=== PATIENT | female | born 1940 | race Caucasian/White ===

== ENCOUNTER 2019-06-29 14:24 | Outpatient (CLI) | payer MEDICARE, SELFPAY ==
--- NOTE | 2019-06-29 14:49 | XR_ITS ---
WS: [id number] Chest 2 views, 06/29/2019 Clinical Data: RIB PAIN, LEFT SIDED, UNSPECIFIED FALL INITIAL ENCOUNTER Comparison: PA and lateral chest, 02/04/2019. Findings: The bilateral pleural effusions have reduced considerably. Only a small residual remains bi laterally. The heart remains enlarged. The aortic arch shows calcification and tortuosity. No pneumon ia or pneumothorax is seen. The pulmonary vascularity is not increased. . Aortic arch and descending aorta show mild calcification. XR/XR chest 2V* [id number] Impression: 1. Significant reduction in bilateral pleural effusions. 2. No change in atherosclerosis and cardiomegaly.
== END 2019-06-29 14:25 | disposition home or self-care (01) ==
LOC: RADWPI 14:30
PROVIDERS: Family Provider Family Medicine; PCP Nurse Practitioner Family; Visit Provider Nurse Practitioner Family
DX: J90 Pleural effusion, not elsewhere classified (principal); R07.81 Pleurodynia
CPT/HCPCS: 71046

== ENCOUNTER → 2019-12-13 14:54 | Outpatient (BNVA) | payer MEDICARE, SELFPAY | PROVIDERS: Family Provider Family Medicine; PCP Nurse Practitioner Family; Visit Provider Internal Medicine Cardiovascular Disease | DX: I35.0 Nonrheumatic aortic (valve) stenosis (principal); I50.33 Acute on chronic diastolic (congestive) heart failure; R06.02 Shortness of breath; I50.32 Chronic diastolic (congestive) heart failure; I48.0 Paroxysmal atrial fibrillation | CPT/HCPCS: 80048; 83880 ==

== ENCOUNTER → 2020-01-09 10:18 | Outpatient (BNVA) | payer MEDICARE, MEDICAID, SELFPAY | PROVIDERS: Family Provider Family Medicine; PCP Nurse Practitioner Family; Visit Provider Internal Medicine Cardiovascular Disease | DX: I11.0 Hypertensive heart disease with heart failure (principal); I50.32 Chronic diastolic (congestive) heart failure; I35.0 Nonrheumatic aortic (valve) stenosis; I48.0 Paroxysmal atrial fibrillation | CPT/HCPCS: 80048; 83880 ==

== ENCOUNTER → 2020-01-23 10:22 | Outpatient (BNVA) | payer MEDICARE, SELFPAY | PROVIDERS: Family Provider Family Medicine; PCP Nurse Practitioner Family; Visit Provider Internal Medicine Cardiovascular Disease | DX: I35.0 Nonrheumatic aortic (valve) stenosis (principal); I48.0 Paroxysmal atrial fibrillation; I50.32 Chronic diastolic (congestive) heart failure; I10 Essential (primary) hypertension | CPT/HCPCS: 80048; 83880 ==

== ENCOUNTER 2020-01-31 14:04 | Outpatient (CLI) | payer MEDICARE, MEDICAID, SELFPAY ==
--- NOTE | 2020-01-31 14:16 | USCV_ITS ---
Chinyereamanda Rose Mary Age: 80 Gender: F : 1940 Exam Date: 01/31/2020 14:42 Ordering Phys: Karthik Keenan MD ([email or web address]) Technologist: Winsome Monson Exam Location: [facility] [place] Indication: BP: / HR: 67 Rhythm: Sinus Technical Quality: Adequate MEASUREMENTS (Male / Female) Normal Values 2D ECHO LV Diastolic Diameter PLAX 3.9 cm 4.2 - 5.9 / 3.9 - 5.3 cm LV Systolic Diameter PLAX 2.4 cm LV Chamber Size 4.2 cm IVS Diastolic Thickness 1.0 cm 0.6 - 1.0 / 0.6 - 0.9 cm IVS Systolic Thickness 1.8 cm LVPW Diastolic Thickness 1.8 cm 0.6 - 1.0 / 0.6 - 0.9 cm LVPW Systolic Thickness 1.9 cm RV Chamber Size 2.1 cm LVOT Diameter 2.0 cm LV Ejection Fraction 2D Teich 68.4 % LV Ejection Fraction MOD 2C 56.1 % LV Ejection Fraction 2C AL 58.9 % LA Diameter 4.1 cm LA Width 3.6 cm LA Height 6.9 cm RA Width 3.6 cm RA Height 5.2 cm Aorta at Sinotubular Diameter 2.9 cm M-MODE LV Diastolic Diameter MM 4.3 cm 4.2 - 5.9 / 3.9 - 5.3 cm LV Systolic Diameter MM 2.9 cm LV Ejection Fraction MM Teich 61.5 % IVS Diastolic Thickness MM 1.5 cm 0.6 - 1.0 / 0.6 - 0.9 cm IVS Systolic Thickness MM 1.6 cm LVPW Diastolic Thickness MM 1.7 cm 0.6 - 1.0 / 0.6 - 0.9 cm LVPW Systolic Thickness MM 2.3 cm RV Diastolic Diameter MM 1.6 cm Aortic Annulus Diameter 3.5 cm LA Ao Ratio MM 1.2 MV E Point Septal Separation 1.0 cm DOPPLER AV Peak Velocity 353.0 cm/s LVOT Peak Velocity 76.7 cm/s AV Area Cont Eq vti 0.8 cm squared AV Area Cont Eq pk 0.7 cm squared MV Area PHT 4.0 cm squared Mitral E to A Ratio 1.4 MV E' Velocity 77.5 cm/s Mitral E to MV E' Ratio 19.4 Mitral E to LV E' Lateral Ratio 20.3 Mitral E to LV E' Septal Ratio 18.7 TR Peak Velocity 202.8 cm/s TR Peak Gradient 16.4 mmHg TR Mean Velocity 140.5 cm/s TR Mean Gradient 9.4 mmHg TR Velocity Time Integral 54.4 cm TV Peak E Velocity 81.0 cm/s Right Atrial Pressure 3.0 mmHg Pulmonary Artery Systolic Pressu 19.4 mmHg PV Peak Velocity 53.0 cm/s RV Acceleration Time 0.1 s RV Ejection Time 0.4 s RV AcT/ET 0.3 FINDINGS Left Ventricle Normal left ventricular size and systolic function, EF 50 %. Mild diffuse hypokinesia of the septum and the anteroseptal segments Right Ventricle Normal right ventricular size and systolic function. Right Atrium Mildly increased right atrial size. Left Atrium Moderately increased left atrial size. Mitral Valve Thickened mitral valve. Mild mitral annular calcification. Moderate to severe mitral valve regurgitation. Aortic Valve Thickened aortic valve. Amizfrgo-mx-bvqkqo aortic valve regurgitation. Possibly severe low gradient aortic valve stenosis with a peak velocity of 3.53 m/s. Peak gradient of 50 with a mean gradient of 29 mmHg. Calculated aortic valve area of 0.79 cm 2. Tricuspid Valve Trace to mild tricuspid valve regurgitation. Pulmonic Valve Pulmonic valve not well visualized. Pericardium No pericardial effusion. Aorta Plaque seen in the ascending aorta. CONCLUSIONS 1. Normal left ventricular size and systolic function, EF 50 %. Mild diffuse hypokinesia of the septum and the anteroseptal segments. 2. Znuvkuxo-sv-nsntrd aortic valve regurgitation. 3. Possibly severe low gradient aortic valve stenosis with a peak velocity of 3.53 m/s. Peak gradient of 50 with a mean gradient of 29 mmHg. Calculated aortic valve area of 0.79 cm 2. 4. Moderate to severe mitral valve regurgitation. 5. Biatrial enlargement. 6. Trace to mild tricuspid valve regurgitation. 7. Plaque seen in the ascending aorta. Compared to the study from 01/26/2019, there is some worsening of the aortic valve stenosis and a decline in the LV systolic function. Dr Karthik Keenan MD FAC (Electronically Signed) Final Date: 31 January 2020 18:55 S
== END 2020-01-31 14:05 | disposition home or self-care (01) ==
LOC: RAD 14:13
PROVIDERS: PCP Nurse Practitioner Family; Visit Provider Internal Medicine Cardiovascular Disease
DX: I08.3 Combined rheumatic disorders of mitral, aortic and tricuspid valves (principal)
CPT/HCPCS: 93306

== ENCOUNTER → 2020-02-18 15:42 | Outpatient (BNVA) | payer MEDICARE, MEDICAID, SELFPAY | PROVIDERS: PCP Nurse Practitioner Family; Visit Provider Internal Medicine Cardiovascular Disease | DX: I50.33 Acute on chronic diastolic (congestive) heart failure (principal); I35.0 Nonrheumatic aortic (valve) stenosis; R07.9 Chest pain, unspecified; R06.02 Shortness of breath; I48.0 Paroxysmal atrial fibrillation; E78.2 Mixed hyperlipidemia; I10 Essential (primary) hypertension | CPT/HCPCS: 80048; 83880 ==

== ENCOUNTER 2020-02-19 16:31 | Inpatient (IN) | payer MEDICARE, MEDICAID, SELFPAY ==
[2020-02-19] VITALS (8 sets, daily range): BP systolic 121–150; BP diastolic 39–81; PULSE 46–59; RESP 17–23; TEMP 36.4–36.8; O2SAT 94–98; BMI 31.8
--- NOTE | 2020-02-19 17:11 | XRR_ITS ---
PROCEDURE INFORMATION: Exam: XR Chest, 1 View Exam date and time: 02/19/2020 5:36 PM Age: 80 years old Clinical indication: Shortness of breath; Additional info: SOB x 2 weeks TECHNIQUE: Imaging protocol: XR of the chest Views: 1 view. COMPARISON: CR XR chest 2V* [id number] 06/29/2019 2:55 PM FINDINGS: Lungs: The pulmonary vascularity is normal. No acute pulmonary infiltrates are seen. Pleural space: Small pleural effusions blunt the costophrenic angles. Heart/Mediastinum: The cardiac silhouette is enlarged but unchanged. There is calcification of the aortic arch. There is no other mediastinal widening. Bones/joints: Unremarkable. XR/XR chest 1V portable [id number] IMPRESSION: 1. Stable small bilateral pleural effusions. 2. Stable cardiomegaly.
[2020-02-19 17:22] LABS: Basophils # 0.1 10^3/uL (0.0-0.1); Basophils % 0.9 %; Eosinophils # 0.2 10^3/uL (0.0-0.8); Hematocrit 34.4 % (37.0-47.0); Hemoglobin 10.6 g/dL (11.5-15.3); Lymphocytes # 1.1 10^3/uL (0.8-4.8); Mean Corpuscular HGB Conc 30.8 g/dL (30.0-36.0); Mean Corpuscular Hemoglobin 28.1 pg (28.0-34.0); Mean Corpuscular Volume 91.2 fL (81-99); Mean Platelet Volume 10.2 fL (7.4-10.4); Monocytes # 0.4 10^3/uL (0.2-0.9); Monocytes % 7.2 %; Neutrophils % 68.7 %; Nucleated Red Blood Cells % 0 %; Platelet Count 284 10^3/cmm (130-400); Red Blood Count 3.77 10^6/uL (4.1-5.3); Red Cell Distribution Width 13.2 % (12.1-15.1); White Blood Count 5.4 10^3/uL (4.0-10.0)
[2020-02-19 17:54] LABS: Lactic Sepsis W/Reflex 0.8 mmol/L (0.5-2.2)
--- NOTE | 2020-02-19 18:01 | ED_ITS ---
HPI - SOB/Dyspnea General: Chief Complaint: Shortness of Breath/Dyspnea Stated Complaint: heavy chest sent from dr escoto' Time Seen by Provider: 02/19/20 16:58 History of Present Illness: HPI Narrative: This patient is an 80-year-old female who was sent to the ER by Dr. Escoto. She saw him in the office yesterday and had some blood work done. She said that he called and told to come in because something was too high on her blood work. She said she has been feeling very short of breath for quite some time. Its been getting worse over the past several days. She has had increased fluid in her legs recently but in the past few days it is actually gotten quite a bit better. She also had some vomiting and diarrhea a week ago that lasted for a number of days. That has been resolved for about a week. She denies any fevers. She has a cough but re lates that to her CHF. She also has a history of atrial fibrillation. Dr. Escoto said he had plan to get an echo on her as an outpatient. Associated symptoms: Reports vomiting (Resolved a week ago); Deny abdominal pain, chest pain, fever(s) or nausea Review of Systems General: Reports: 10 or more systems reviewed and unremarkable except in HPI and below Const: Denies: fever(s), chills, fatigue or malaise Eyes: Denies: change in vision ENMT: Denies: odynophagia Card: Denies: chest pain or swelling of feet/ankles Resp: Reports: dyspnea and productive cough; Denies: non-productive cough GI: Reports: vomiting (Resolved a week ago); Denies: abdominal pain or nausea : Denies: flank pain or difficulty voiding Musc: Denies: neck pain or back pain Skin/Breast: Denies: rash Neuro: Denies: headache(s), numbness in extremities or weakness in extremities Patricio/Lymph: Denies: easy bruising or easy bleeding PFSH ED 2 PFSH: Medical History Anemia Aortic stenosis Atrial fibrillation CHF (congestive heart failure) COPD (chronic obstructive pulmonary disease) GERD (gastroesophageal reflux disease) Hiatal hernia Hyperlipidemia Hypertension Hypothyroidism Surgical History (Updated 02/19/20 @ 20:45 by Hiro Wiggins MD) H/O rectal polypectomy H/O spinal fusion H/O: hysterectomy Hx of colonoscopy S/P placement of cardiac pacemaker Family History (Updated 02/19/20 @ 20:45 by Hiro Wiggins MD) Sister Cancer Denies family history of Anesthesia complication Bleeding disorder Social History (Updated 02/19/20 @ 20:46 by Hiro Wiggins MD) Smoking and tobacco status: former smoker Alcohol intake: never Substance/Drug Use: never Household members: family Marital status: / Physical Exam Const: COMMON NORMALS: no acute distress, patient oriented x3, no limitations and alert GENERAL APPEARANCE: cooperative and comfortable HENMT: HEAD & SCALP: normal to inspection FACE & SINUS: normal facial exam Eye: GENERAL EYE: appearance normal, both eyes and all related structures Neck/C-Spine: COMMON NORMALS: supple, no meningeal signs and no JVD Chest: COMMONS NORMALS: normal inspection of the chest Resp: COMMON NORMALS: normal respiratory effort, No use of accessory muscles and clear to auscultation bilaterally AUSCULTATION: clear to auscultation bilaterally Cardio: COMMON NORMALS: no JVD, regular rate and regular rhythm RATE: regular rate RHYTHM: regular rhythm HEART SOUNDS: Murmur heart sound present (3 out of 6, consistent with aortic stenosis) GI: COMMON NORMALS: Normal to inspection, nondistended, normoactive bowel sounds present, Soft to palpation and non-tender INSPECTION: Yes normal to inspection AUSCULTATION: Yes normoactive bowel sounds PALPATION: Yes Soft to palpation Back/Pelvis: COMMON NORMALS: thoracic and lumbar spine normal to inspection Extremity: COMMON NORMALS: normal to inspection Neuro: COMMON NORMALS: patient oriented x3, moves all extremities, no focal motor deficits and no sensory deficits noted SENSORIUM/ORIENTATION: Yes alert MENINGEAL SIGNS: Yes no meningeal signs Psych: COMMON NORMALS: mental status grossly normal, cooperative and normal affect Skin: COMMON NORMALS: no rashes or lesions noted and turgor normal GENERAL SKIN EXAM: no rashes or lesions noted and turgor normal Course ED course: Patient does have worsening CHF as reflected by her labs and chest x-ray. Oxygen saturations are adequate in the ER. She is not complaining of any current chest pain. I spoke with Dr. Escoto who asked that she be admitted and he will consult. The hospitalist agreed to admit her. She will be put on telemetry and further evaluation will be undertaken. Vital Signs: Vital signs: Vital Signs Temperature 98.2 F 02/19/20 16:42 Pulse Rate 47 L 02/19/20 21:04 Respiratory Rate 19 H 02/19/20 21:04 Blood Pressure 126/81 02/19/20 21:04 Pulse Oximetry 97 02/19/20 21:04 MDM - SOB/Dyspnea Lab Data: Labs: Lab Results 02/19/20 02/19/20 02/19/20 Range/Units 17:15 17:15 17:15 WBC 5.4 (4.0-10.0) 10^3/ uL RBC 3.77 L (4.1-5.3) 10^6/u L Hgb 10.6 L (11.5-15.3) g/dL Hct 34.4 L (37.0-47.0) % MCV 91.2 (81-99) fL MCH 28.1 (28.0-34.0) pg MCHC 30.8 (30.0-36.0) g/dL RDW 13.2 (12.1-15.1) % Plt Count 284 (130-400) 10^3/c mm MPV 10.2 (7.4-10.4) fL Neut % (Auto) 68.7 % Lymph % (Auto) 20.0 % Preston % (Auto) 7.2 % Eos % (Auto) 3.0 % Baso % (Auto) 0.9 % Neut # (Auto) 3.70 (1.8-7.7) 10^3/u L Lymph # (Auto) 1.1 (0.8-4.8) 10^3/u L Preston # (Auto) 0.4 (0.2-0.9) 10^3/u L Eos # (Auto) 0.2 (0.0-0.8) 10^3/u L Baso # (Auto) 0.1 (0.0-0.1) 10^3/u L Nucleated RBC % (a uto) 0 % Nucleated RBCs # 0.0 /100WBC PT (12.1-14.9) SECO NDS INR (0.8-1.2) Sodium 135 L (136-145) mmol/L Potassium 4.0 (3.5-5.1) mmol/L Chloride 101 (98-107) mmol/L Carbon Dioxide 24 (22-29) mmol/L Anion Gap 14.0 (5-19) BUN 14 (8-23) mg/dL Creatinine 1.0 H (0.5-0.9) mg/dL GFR Calculation Not Reportable Glucose 100 (65-115) mg/dL Calculated Osmolal ity 281 L (285-295) mOsm/k g Lactic Acid (0.5-2.2) mmol/L Calcium 9.2 (8.5-10.5) mg/dL Magnesium 2.1 (1.7-2.3) mg/dL Total Bilirubin 0.5 (0.15-1.2) mg/dL AST 22 (0-32) U/L ALT 9 (0-33) U/L Alkaline Phosphata se 85 (35-105) IU/L Troponin T Baselin e 16 H (0-10) ng/L Troponin T 120 Min [place] (0-10) ng/L Delta Troponin T (0-10) ABS# NT-Pro-B Natriuret Pep 3135 H (0-450) pg/mL Total Protein 6.9 (6.6-8.7) g/dL Albumin 4.2 (3.5-5.2) g/dL Globulin 2.7 (1.3-4.6) g/dL 02/19/20 02/19/20 02/19/20 Range/Units 17:15 17:15 19:41 WBC (4.0-10.0) 10^3/ uL RBC (4.1-5.3) 10^6/u L Hgb (11.5-15.3) g/dL Hct (37.0-47.0) % MCV (81-99) fL MCH (28.0-34.0) pg MCHC (30.0-36.0) g/dL RDW (12.1-15.1) % Plt Count (130-400) 10^3/c mm MPV (7.4-10.4) fL Neut % (Auto) % Lymph % (Auto) % Preston % (Auto) % Eos % (Auto) % Baso % (Auto) % Neut # (Auto) (1.8-7.7) 10^3/u L Lymph # (Auto) (0.8-4.8) 10^3/u L Preston # (Auto) (0.2-0.9) 10^3/u L Eos # (Auto) (0.0-0.8) 10^3/u L Baso # (Auto) (0.0-0.1) 10^3/u L Nucleated RBC % (a uto) % Nucleated RBCs # /100WBC PT 15.60 H (12.1-14.9) SECO NDS INR 1.20 (0.8-1.2) Sodium (136-145) mmol/L Potassium (3.5-5.1) mmol/L Chloride (98-107) mmol/L Carbon Dioxide (22-29) mmol/L Anion Gap (5-19) BUN (8-23) mg/dL Creatinine (0.5-0.9) mg/dL GFR Calculation Glucose (65-115) mg/dL Calculated Osmolal ity (285-295) mOsm/k g Lactic Acid 0.8 (0.5-2.2) mmol/L Calcium (8.5-10.5) mg/dL Magnesium (1.7-2.3) mg/dL Total Bilirubin (0.15-1.2) mg/dL AST (0-32) U/L ALT (0-33) U/L Alkaline Phosphata se (35-105) IU/L Troponin T Baselin e (0-10) ng/L Troponin T 120 Min [place] 16.40 H (0-10) ng/L Delta Troponin T 0.40 (0-10) ABS# NT-Pro-B Natriuret Pep (0-450) pg/mL Total Protein (6.6-8.7) g/dL Albumin (3.5-5.2) g/dL Globulin (1.3-4.6) g/dL Discharge Plan Discharge Prescriptions: No Action amlodipine 10 mg tablet 10 mg PO DAILY 30 Days Qty: 30 RF: 5 metoprolol tartrate 25 mg tablet 25 mg PO BID 30 Days Qty: 60 RF: 5 levothyroxine 112 mcg tablet 112 mcg PO DAILY RF: 0 pantoprazole 40 mg tablet,delayed release (DR/EC) 40 mg PO BID RF: 0 ropinirole 5 mg tablet 5 mg PO TID RF: 0 sertraline 100 mg tablet 150 mg PO DAILY RF: 0 pravastatin 20 mg tablet 20 mg PO DAILY RF: 0 polyethylene glycol 3350 17 gram powder in packet 17 gm PO DAILY RF: 0 trazodone 50 mg tablet 50 mg PO DAILY RF: 0 Eliquis 5 mg tablet 5 mg PO BID RF: 0 furosemide 40 mg tablet 40 mg PO BID RF: 0 potassium chloride [Klor-Con 10] 10 mEq tablet extended release 10 meq PO TID RF: 0 Coding Level of Care Code ED Form Setter Helper for Chg Fwd Exam Comprehensive
[2020-02-19 18:04] LABS: Alanine Aminotransferase 9 U/L (0-33); Albumin Level 4.2 g/dL (3.5-5.2); Alkaline Phosphatase 85 IU/L (35-105); Aspartate Amino Transferase 22 U/L (0-32); Blood Urea Nitrogen 14 mg/dL (8-23); Calcium 9.2 mg/dL (8.5-10.5); Carbon Dioxide 24 mmol/L (22-29); Chloride 101 mmol/L (98-107); Globulin 2.7 g/dL (1.3-4.6); Glucose 100 mg/dL (65-115); Magnesium 2.1 mg/dL (1.7-2.3); NT Pro B Type Natriuretic Pept 3135 pg/mL (0-450); Osmolality Calculated 281 mOsm/kg (285-295); Sodium 135 mmol/L (136-145); Total Bilirubin 0.5 mg/dL (0.15-1.2); Total Protein 6.9 g/dL (6.6-8.7)
[2020-02-19 18:05] LABS: Troponin(5th) Baseline 16 ng/L (0-10)
[2020-02-19 18:07] LABS: Creatinine Clr Calc Pharmacy 45.4033
--- NOTE | 2020-02-19 20:39 | PM.HP ---
Providers/Chief Complaint Primary Care Provider: SARIKA DIANA Chief Complaint: heavy chest sent from dr keenan' History of Present Illness Rose Mary Jay is a 80 year old female who carries history of aortic stenosis(mean gradient 22 mmHg, aortic area valve 0.94 cm? , preserved ejection fraction, atrial fibrillation, chronic anticoagulation, pacemaker placement, sent to the hospital for worsening shortness of breath. Patient has seen Dr. Keenan yesterday for her symptoms, she was asked to follow-up with him on Tuesday for an echo before her evaluation at [facility] for aortic valve replacement. Patient is denying fever, productive cough. She is endorsing profuse diarrhea which she experienced few days back which has resolved, she also experienced multiple episodes of emesis. Today Dr. Keenan called her to come to the ED for further evaluation, patient is stating that she could hardly take 10-15 steps without getting short of breath at home. Recently she has not noticed orthopnea and PND, she has been consistent with her diuretic regimen. Diagnosis in the ER revealed high BNP otherwise vitals and chest x-ray unremarkable, EKG showing no ischemic or infarctive changes, atrial fibrillation, no significant delta troponin, currently chest pain-free, clinically looks euvolemic Review of Systems Const: Reports: chills, body aches, fatigue and malaise; Denies: fever(s) Eyes: Denies: change in vision ENMT: Denies: throat pain Card: Reports: chest pain and swelling of feet/ankles; Denies: orthopnea Resp: Reports: dyspnea and non-productive cough GI: Reports: diarrhea; Denies: abdominal pain or nausea : Denies: flank pain Musc: Denies: neck pain Skin/Breast: Denies: rash Neuro: Denies: headache(s) Psych: Reports: anxiety Endo: Denies: polyuria Patricio/Lymph: Denies: easy bruising All/Imm: Denies: urticaria Medications/Allergies Home Medications Medication Instructions Recorded Confirmed Last Taken Type apixaban 5 mg tablet 5 mg PO BID 09/25/19 09/25/19 Unknown History levothyroxine 112 mcg tablet 112 mcg PO DAILY 09/25/19 09/25/19 Unknown History pantoprazole 40 mg tablet,delayed 40 mg PO BID tab 09/25/19 09/25/19 Unknown History release polyethylene glycol 3350 17 gram 17 gm PO DAILY 09/25/19 09/25/19 Unknown History oral powder packet pravastatin 20 mg tablet 20 mg PO DAILY 09/25/19 09/25/19 Unknown History ropinirole 5 mg tablet 5 mg PO TID 09/25/19 09/25/19 Unknown History sertraline 100 mg tablet 150 mg PO DAILY tab 09/25/19 09/25/19 Unknown History trazodone 50 mg tablet 50 mg PO DAILY tab 09/25/19 09/25/19 Unknown History furosemide 40 mg tablet 40 mg PO BID tab 01/11/20 Unknown History potassium chloride 10 mEq 10 meq PO TID tab 01/11/20 Unknown History tablet,extended release amlodipine 10 mg tablet 10 mg PO DAILY 30 Days #30 tab 02/18/20 02/18/20 Unknown Rx metoprolol tartrate 25 mg tablet 25 mg PO BID 30 Days #60 tab 02/18/20 02/18/20 Unknown Rx Allergies Allergy/AdvReac Type Severity Reaction Status Date / Time sulfamethoxazole Allergy Unknown unknown Verified 02/19/20 22:53 [From Bactrim] trimethoprim [From Bactrim] Allergy Unknown unknown Verified 02/19/20 22:53 PFSH Acute PFSH: Medical History Anemia Aortic stenosis Atrial fibrillation CHF (congestive heart failure) COPD (chronic obstructive pulmonary disease) GERD (gastroesophageal reflux disease) Hiatal hernia Hyperlipidemia Hypertension Hypothyroidism Surgical History H/O rectal polypectomy H/O spinal fusion H/O: hysterectomy Hx of colonoscopy S/P placement of cardiac pacemaker Family History Sister Cancer Denies family history of Anesthesia complication Bleeding disorder Social History Smoking and tobacco status: former smoker Alcohol intake: never Household members: family Marital status: / Vitals/I&O/Wt Last Vital Signs Temp 98.2 F 02/19/20 16:42 Pulse 46 L 02/19/20 20:00 Resp 23 H 02/19/20 20:00 BP 128/41 02/19/20 20:00 Pulse Ox 98 02/19/20 20:00 Weight last 48 hrs Weight 81.647 kg Physical Exam Narrative: EXAM NARRATIVE: Pleasant female Currently sitting comfortable in her bed, saturating well on room air No active respiratory distress or chest pain Clinically looks euvolemic, Does not look fluid overloaded, S1, S2 variable, hemodynamically stable Abdomen soft nontender bowel sound present Lower extremity no edema gangrene or ulcer, I could appreciate skin wrinkling Appropriate mood and affect EOMI, PERRLA, No neurological deficit Lungs are clear to auscultation without adventitious rhonchi or wheezing Data : 02/19/20 17:15 02/19/20 17:15 A&P Assessment and plan (1) Aortic stenosis: Status: Acute Qualifiers: Cardiac valve disease etiology: nonrheumatic Qualified Code(s): I35.0 - Nonrheumatic aortic (valve) stenosis (2) Atrial fibrillation: Status: Acute Qualifiers: Atrial fibrillation type: paroxysmal Qualified Code(s): I48.0 - Paroxysmal atrial fibrillation (3) Hypertension: Status: Acute Qualifiers: Hypertension type: essential hypertension Qualified Code(s): I10 - Essential (primary) hypertension (4) CHF (congestive heart failure): Status: Acute Qualifiers: Heart failure type: diastolic Heart failure chronicity: chronic Qualified Code(s): I50.32 - Chronic diastolic (congestive) heart failure Additional A&P Information Symptomatic aortic stenosis Aortic valve area less than 1 cm?, echo in the morning, consideration for aortic valve replacement evaluation at [facility] No syncopal event, she has been complaining of mild chest discomfort after dyspnea on exertion Currently hemodynamically stable Dr. Keenan consulted She is requiring hospitalization because of her worsening of shortness of breath, she could hardly take 10-15 steps without getting dyspneic at home which was causing chest pain on and off, troponins without significant delta, EKG not showing ischemic or infarctive changes, Congestive heart failure without acute exacerbation Her BNP although is high but clinically she is euvolemic, she has been taking Lasix 80 mg for now I would use Bumex 1 mg daily considering her active fluid fluid status Hypertension: Currently normotensive, A. fib without RVR, continue Eliquis along metoprolol Full code DVT prophylaxis: Not indicated due to Eliquis use Cardiac diet Attestations Medical Necessity Statement*: Anticipating discharge in less than 48 hours continued overnight monitoring for her symptomatic aortic stenosis with dyspnea exertion, echo in the morning, cardiology has been consulted Time Spent in Patient Care: (>than 50% of time spent in counselling and/or direct pt care on unit). 50mins Coding Level of Care Code Acute Residential Advisor for g Fwd Diagnoses Aortic stenosis I35.0 Cardiac valve disease etiology: nonrheumatic Atrial fibrillation I48.0 Atrial fibrillation type: paroxysmal Hypertension I10 Hypertension type: essential hypertension CHF (congestive heart failure) I50.32 Heart failure type: diastolic Heart failure chronicity: chronic
--- NOTE | 2020-02-19 22:52 | PC.NURSE ---
Patient arrived to the floor from the ED after report was received via phone. Patient is alert and oriented and ambulatory. Patient has been oriented to her room and has call light within reach. Patient has no complaints at this time.
--- NOTE | 2020-02-19 22:53 | PC.NURSE ---
Patient does not have her medication list with her. Unable to verify med rec at this time.
--- NOTE | 2020-02-19 23:10 | ECG_ITS ---
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 Measurements Intervals [place] Rate: 50 P: MT: -1 QRS: 77 QRSD: 93 T: 69 QT: 463 QTc: 426 Interpretive Statements ATRIAL FIBRILLATION WITH SLOW VENTRICULAR RESPONSE MODERATE ST DEPRESSION [0.05+ mV ST DEPRESSION] Compared to ECG 02/05/2019 14:59:58 ST (T wave) deviation now present T-wave abnormality no longer present Electronically Signed On 02-19-2020 20:15:09 CDT by Zunilda Staton M.D. [id number]
[2020-02-19 23:30] LABS: Troponin 5 6HR 15.67 ng/L (0-10)
[2020-02-19 23:51] LABS: Troponin 5 6HR Delta -0.33 ng/L (0-12)
[2020-02-20 01:13] VITALS: BP 116/54; PULSE 60; RESP 20; TEMP 36.6; O2SAT 93
[2020-02-20 04:11] VITALS: BP 110/64; PULSE 47; RESP 19; TEMP 37; O2SAT 92
--- NOTE | 2020-02-20 07:00 | USCV_ITS ---
Rose Mary Jay Age: 80 Gender: F : 1940 Exam Date: 02/20/2020 07:03 Ordering Phys: Hiro Wiggins MD Technologist: Winsome Monson Exam Location: [facility] – [place] Indication: BP: 110 / 64 HR: 53 Rhythm: Sinus Technical Quality: Adequate MEASUREMENTS (Male / Female) Normal Values 2D ECHO LV Diastolic Diameter PLAX 3.8 cm 4.2 - 5.9 / 3.9 - 5.3 cm LV Systolic Diameter PLAX 2.8 cm LV Chamber Size 4.4 cm IVS Diastolic Thickness 1.4 cm 0.6 - 1.0 / 0.6 - 0.9 cm IVS Systolic Thickness 2.0 cm LVPW Diastolic Thickness 2.1 cm 0.6 - 1.0 / 0.6 - 0.9 cm LVPW Systolic Thickness 1.7 cm RV Chamber Size 2.7 cm LVOT Diameter 2.0 cm LV Ejection Fraction 2D Teich 49.0 % LV Ejection Fraction MOD 2C 28.2 % LV Ejection Fraction 2C AL 29.0 % LA Diameter 4.4 cm LA Width 4.2 cm LA Height 6.7 cm RA Width 3.9 cm RA Height 6.0 cm Aorta at Sinotubular Diameter 2.8 cm M-MODE LV Diastolic Diameter MM 5.3 cm 4.2 - 5.9 / 3.9 - 5.3 cm LV Systolic Diameter MM 3.3 cm LV Ejection Fraction MM Teich 67.9 % IVS Diastolic Thickness MM 1.4 cm 0.6 - 1.0 / 0.6 - 0.9 cm IVS Systolic Thickness MM 1.8 cm LVPW Diastolic Thickness MM 1.1 cm 0.6 - 1.0 / 0.6 - 0.9 cm LVPW Systolic Thickness MM 1.8 cm RV Diastolic Diameter MM 2.1 cm Aortic Annulus Diameter 3.3 cm LA Ao Ratio MM 1.4 MV E Point Septal Separation 1.0 cm DOPPLER AV Peak Velocity 369.3 cm/s LVOT Peak Velocity 74.3 cm/s AV Area Cont Eq vti 0.6 cm squared AV Area Cont Eq pk 0.6 cm squared MV Area PHT 4.1 cm squared Mitral E to A Ratio 2.1 MV E' Velocity 71.5 cm/s Mitral E to MV E' Ratio 13.8 Mitral E to LV E' Lateral Ratio 16.9 Mitral E to LV E' Septal Ratio 11.7 TR Peak Velocity 239.4 cm/s TR Peak Gradient 22.9 mmHg TR Mean Velocity 178.2 cm/s TR Mean Gradient 14.4 mmHg TR Velocity Time Integral 85.3 cm TV Peak E Velocity 73.0 cm/s Right Atrial Pressure 5.0 mmHg Pulmonary Artery Systolic Pressu 27.9 mmHg PV Peak Velocity 80.0 cm/s RV Acceleration Time 0.1 s RV Ejection Time 0.3 s RV AcT/ET 0.3 FINDINGS Left Ventricle Normal left ventricular size and systolic function. No significant regional wall motion abnormalities. LVEF is 50%. Diastolic function cannot be assessed because of atrial fibrillation. Right Ventricle The right ventricle is normal in size and function. Right Atrium The right atrium is enlarged Left Atrium The left atrium is severely enlarged Mitral Valve Thickened and calcified mitral valve. Moderate mitral valve regurgitation is noted. Aortic Valve Aortic valve is thickened and calcified. There is moderate aortic regurgitation. Severe aortic stenosis is noted with aortic valve peak velocity of 3.7 m/s.by continuity equation, aortic valve area is calculated as 0.65 cm squared with mean gradient of 35 mmHg. Tricuspid Valve Structurally normal tricuspid valve without significant stenosis or regurgitation. Insufficient TR jet to calculate RVSP. Pulmonic Valve Structurally normal pulmonic valve without significant stenosis. There is no pulmonic regurgitation. Pericardium Normal pericardium without effusion. Aorta Normal ascending aorta dimension. CONCLUSIONS LV systolic function is normal with EF 50%. Diastolic function cannot be assessed because of atrial fibrillation. Severe aortic stenosis is present with aortic valve area of 0.65 cm squared and mean gradient across the valve of 35 mmHg. Moderate aortic regurgitation and moderate mitral regurgitation are noted. Compared to prior study from 01/31/2020, no significant changes are noted. Luis Reina MD (Electronically Signed) Final Date: 20 February 2020 10:43 S
--- NOTE | 2020-02-20 08:13 | P.CONIM_ITS ---
Providers/Reason For Consult Consulting Physican/Specialty*: My name/cardiology Reason for Consult*: Patient with increasing shortness of breath, severe aortic valve stenosis Attending Physician: Mckinley Olson Primary Care Provider: SARIKA DIANA History of Present Illness History of Present Illness Rose Mary Jay is a 80 year old female with multiple medical problems, is presenting with increasing shortness of breath. She is known to have aortic valve stenosis and mitral regurgitation. Her recent echocardiogram revealed severe aortic valve stenosis(low gradient) and moderately severe mitral regurgitation. Her LV ejection fraction was found to be around 50%. She has a history of chronic diastolic heart failure. Lately she been getting progressively short of breath. She was taking a fairly high dose of Lasix as outpatient. In spite of this, her shortness of breath has been progressively getting worse. She also is complaining of generalized weakness/fatigue. Exercise tolerance has markedly decreased. Patient has a history of chronic atrial fibrillation and is on long-term oral anticoagulation. She also is known to have high blood pressure and dyslipidemia. She has a history of chronic anemia, hypothyroidism and recently diagnosed renal insufficiency. She denies any chest pain. No fever, chills or cough. No abdominal pain or dysuria. No other specific complaints. Review of Systems Narrative: CONSTITUTIONAL: No fever or chills. Generalized fatigue/shortness of breath EYES: No blurring of vision or other visual disturbances lately. ENT: No hoarseness of voice, auditory disturbances or sore throat. CARDIOVASCULAR: As mentioned above. RESPIRATORY: No significant cough. GASTROINTESTINAL: No hematemesis or melena. GENITOURINARY: No dysuria or hematuria. INTEGUMENTARY: No skin rashes or history of skin cancer. NEURO: No transient ischemic attacks or amaurosis. PSYCHIATRIC: No history of psychosis or major depression. HEMATOLOGIC: No bleeding disorders or significant anemia. ENDOCRINE: No history of polyuria or polydipsia. MUSCULOSKELETAL: No recent joint pain or swelling. ALLERGY/IMMUNOLOGY: As mentioned above. Meds/Allergies Home Medications and Allergies Home Medications Medication Instructions Recorded Confirmed Last Taken Type apixaban 5 mg tablet 5 mg PO BID 09/25/19 02/20/20 Unknown History pantoprazole 40 mg tablet,delayed 40 mg PO BID tab 09/25/19 02/20/20 Unknown History release polyethylene glycol 3350 17 gram 17 gm PO DAILY 09/25/19 02/20/20 Unknown History oral powder packet pravastatin 20 mg tablet 20 mg PO DAILY 09/25/19 02/20/20 Unknown History sertraline 100 mg tablet 150 mg PO DAILY tab 09/25/19 02/20/20 Unknown History furosemide 40 mg tablet 40 mg PO BID tab 01/11/20 02/20/20 Unknown History potassium chloride 10 mEq 10 meq PO TID tab 01/11/20 02/20/20 Unknown History tablet,extended release amlodipine 10 mg tablet 10 mg PO DAILY 30 Days #30 tab 02/18/20 02/20/20 Unknown Rx metoprolol tartrate 25 mg tablet 25 mg PO BID 30 Days #60 tab 02/18/20 02/20/20 Unknown Rx Vitamin B-12 1 tab PO DAILY 02/20/20 02/20/20 Unknown History gabapentin 400 mg PO TID 02/20/20 02/20/20 Unknown History hydroxyzine HCl 25 mg PO TID PRN 02/20/20 02/20/20 Unknown History levothyroxine 125 mcg PO DAILY 02/20/20 02/20/20 Unknown History losartan 50 mg PO DAILY 02/20/20 02/20/20 Unknown History omeprazole 40 mg PO DAILY 02/20/20 02/20/20 Unknown History vitamin E 1 cap PO DAILY 02/20/20 02/20/20 Unknown History Allergies Allergy/AdvReac Type Severity Reaction Status Date / Time sulfamethoxazole Allergy Unknown unknown Verified 02/20/20 13:07 [From Bactrim] trimethoprim [From Bactrim] Allergy Unknown unknown Verified 02/20/20 13:07 PFSH Acute PFSH: Medical History (Updated 02/20/20 @ 11:20 by Mckinley Olson MD) Acute on chronic diastolic (congestive) heart failure Anemia Aortic stenosis Atrial fibrillation Benign essential hypertension with target blood pressure below 140/90 CHF (congestive heart failure) Chronic episodic atrial fibrillation COPD (chronic obstructive pulmonary disease) Dyslipidemia (high LDL; low HDL) GERD (gastroesophageal reflux disease) Hiatal hernia Hyperlipidemia Hypertension Hypothyroidism Moderate to severe mitral regurgitation Severe aortic valve stenosis Surgical History H/O rectal polypectomy H/O spinal fusion H/O: hysterectomy Hx of colonoscopy S/P placement of cardiac pacemaker Family History Sister Cancer Denies family history of Anesthesia complication Bleeding disorder Social History Smoking and tobacco status: former smoker Alcohol intake: never Substance/Drug Use: never Household members: family Marital status: / Vitals/I&O/Wt Last Vital Signs Temp 98.6 F 02/20/20 04:11 Pulse 47 L 02/20/20 04:11 Resp 19 H 02/20/20 04:11 BP 110/64 02/20/20 04:11 Pulse Ox 92 02/20/20 04:11 02/19/20 02/20/20 02/20/20 22:59 06:59 14:59 Intake Total 400 / 400 Balance 400 / 400 Weight last 48 hrs Weight 180 lb Physical Exam Narrative: EXAM NARRATIVE: GENERAL: The patient is alert and oriented times three. Not in any acute distress. Lightly tachypneic HEENT: No significant pallor, icterus or lymphadenopathy. The pupils are reactant to light. Oral cavity: There are no mucous membrane lesions. Funduscopic examination: The fundus is not visualized NECK: Trachea appears to be central. No masses noted. No JVD or thyromegaly appreciated. No carotid bruit. RESPIRATORY: Chest is symmetrical. No intercostals muscle retraction or any accessory muscle activation. There is no chest wall tenderness. Breath sounds are heard bilaterally. Few fine rales at the bases. Intensity of breath sounds are slightly diminished in the bases BREASTS: Deferred. HEART: The PMI is in the 5th left intercostals space just in the midclavicular line. No palpable precordial events. First heart sound is variable. Second heart sound is muffled. ABDOMEN: No vessel pulsations or distention. No tenderness. No organomegaly appreciated. No abdominal bruit. Bowel sounds are normally heard. : Deferred. RECTAL: Deferred. LYMPHATIC: No lymphadenopathy noted in the neck or groin. EXTREMITIES: No edema or cyanosis. No clubbing. The pulses are palpable but weak bilaterally palpated and found to be of low volume and amplitude MUSCULOSKELETAL: No acute joint deformities or swelling SKIN: There are no significant scars or skin rash noted. NEUROPSYCHIATRIC: The patient is alert and oriented x3. Appears to be in a good mood. The higher functions are grossly within normal limits. No tremors or rigidity noted. A&P Assessment and plan (1) Acute on chronic diastolic (congestive) heart failure: Most likely related to left regular diastolic dysfunction and the severe aortic valve stenosis. Patient may be carefully treated with IV diuretics. I will start her on IV Lasix 40 mg every 12 hours. Potassium 20 mg p.o. twice daily. Based on the clinical response, further recommendations will be made. Status: Acute (2) Chronic episodic atrial fibrillation: Patient may be continued on the current medications. She is on Eliquis. I may hold off on this for the time being. Instead she may be started on Lovenox 80 mg every 12 hours, starting this evening. This is in preparation for the cardiac colorization, possibly on Tuesday. Status: Acute (3) Severe aortic valve stenosis: As mentioned above. Patient seems to have a low gradient severe aortic valve stenosis. Status: Acute (4) Moderate to severe mitral regurgitation: This also may need to be intervened. Status: Acute (5) Benign essential hypertension with target blood pressure below 140/90: Currently the patient is normotensive. We will continue on the current medications. Status: Acute (6) Dyslipidemia (high LDL; low HDL): May continue on the current medications. Status: Acute Additional A&P Information After reviewing the above and also based on the patient's clinical progress, further recommendations will be made. Once the heart failure is properly treated, we may consider doing a cardiac catheterization, to further evaluate the coronary status and hemodynamics. Thank you for the opportunity to evaluate this patient and make these recommendations Coding Level of Care Code Acute Business Center Representative for [facility] Diagnoses Acute on chronic diastolic (congestive) heart failure I50.33 Chronic episodic atrial fibrillation I48.20 Severe aortic valve stenosis I35.0 Moderate to severe mitral regurgitation I34.0 Benign essential hypertension with target blood pressure below 140/90 I10 Dyslipidemia (high LDL; low HDL) E78.5
[2020-02-20] MEDS: ropinirole 2 mg Tablet 5 MG PO ×3 (08:40→19:27)
[2020-02-20] MEDS: atorvastatin 40 mg Tablet 20 MG PO (08:41)
[2020-02-20] MEDS: levothyroxine 112 mcg Tablet PO (08:42)
[2020-02-20] MEDS: sertraline 100 mg Tablet 150 MG PO (08:42)
[2020-02-20] MEDS: pantoprazole DR 40 mg Tablet PO ×2 (08:43→18:15)
[2020-02-20] MEDS: amlodipine 10 mg Tablet PO (08:43)
[2020-02-20] MEDS: apixaban 5 mg Tablet PO (08:43)
[2020-02-20] MEDS: metoprolol tartrate 25 mg Tablet 12.5 MG PO ×2 (08:43→18:15)
[2020-02-20] MEDS: bumetanide 1 mg Tablet PO (08:43)
--- NOTE | 2020-02-20 09:08 | PC.RESP ---
PULMONARY REHAB INFORMATION SENT TO PATIENT.
--- NOTE | 2020-02-20 11:13 | PM.PN ---
Subjective Subjective: Interval history: Reports she is getting short of breath with exertion/walking especially prolonged distance. Currently is not short of breath at rest. Denies chest pain or pressure. Does say that she has been getting intermittent cough. Reports that 3 days ago coughed up phlegm with blood. Vitals/I&O/Wt Last Vital Signs Temp 98.6 F 02/20/20 04:11 Pulse 47 L 02/20/20 04:11 Resp 19 H 02/20/20 04:11 BP 110/64 02/20/20 04:11 Pulse Ox 92 02/20/20 04:11 02/19/20 02/20/20 02/20/20 22:59 06:59 14:59 Intake Total 400 / 400 240 / 240 Balance 400 / 400 240 / 240 Weight last 48 hrs Weight 81.647 kg Physical Exam Const: COMMON NORMALS: no acute distress and patient oriented x3 OTHER: Awake, alert, reclined in bed. Comfortable, pleasant, conversant. HENMT: COMMON NORMALS: oropharynx normal Neck/C-Spine: COMMON NORMALS: no JVD Resp: COMMON NORMALS: normal respiratory effort and clear to auscultation bilaterally AUSCULTATION: clear to auscultation bilaterally Cardio: COMMON NORMALS: no JVD, regular rhythm, S1 normal heart sound present and S2 normal heart sound present RHYTHM: regular rhythm HEART SOUNDS: S1 normal heart sound present, S2 normal heart sound present and Murmur heart sound present systolic GI: COMMON NORMALS: Normal to inspection, nondistended, normoactive bowel sounds present, Soft to palpation and non-tender PALPATION: Yes Soft to palpation Extremity: COMMON NORMALS: no joint enlargement and no pedal edema GENERAL: Yes edema (trace) Neuro: COMMON NORMALS: patient oriented x3 and moves all extremities Skin: COMMON NORMALS: no rashes or lesions noted GENERAL SKIN EXAM: no rashes or lesions noted Data : 02/19/20 17:15 02/19/20 17:15 A&P Assessment and plan (1) Aortic stenosis: Her dyspnea on exertion may be secondary to aortic stenosis. Discussed with cardiology. She is undergoing additional work-up With consideration of aortic valve replacement. After optimization of volume status cosmetic sales assistant is planning for additional assessment with coronary angiogram. Patient has some history of GI bleeding in 2019, although has been on Eliquis, and hemoglobin appears to be stable. Status: Acute Qualifiers: Cardiac valve disease etiology: nonrheumatic Qualified Code(s): I35.0 - Nonrheumatic aortic (valve) stenosis (2) Hemoptysis: Reports some intermittent cough, says that has been having some blood mixed in with phlegm last time 3 days ago after prolonged cough episode. I am not sure whether this may be secondary to aortic stenosis which is a possibility. Will assess with CT of the chest. Status: Acute (3) CHF (congestive heart failure): Cardiology is optimizing her volume status with diuresis prior to additional assessment by car angiography. Status: Acute Qualifiers: Heart failure type: diastolic Heart failure chronicity: chronic Qualified Code(s): I50.32 - Chronic diastolic (congestive) heart failure (4) Atrial fibrillation: Currently episodes of bradycardia down into high 30s. Does not appear to be symptomatic. Cardiology aware, monitoring for now. On minimal metoprolol with 12.5 mg twice daily. Eliquis for now switched to Lovenox anticipation of additional procedures. Status: Acute Qualifiers: Atrial fibrillation type: paroxysmal Qualified Code(s): I48.0 - Paroxysmal atrial fibrillation (5) Hypertension: At goal. Monitor. Status: Acute Qualifiers: Hypertension type: essential hypertension Qualified Code(s): I10 - Essential (primary) hypertension (6) History of GI bleed: History of GI bleed and had upper and lower endoscopy back in January 2019. Has been on Eliquis anticoagulation. Hemoglobin appears to be stable. Continue PPI. Gastritis was noted on EGD. During colonoscopy had polypectomy. Status: Acute Attestations Medical Necessity Statement*: Continue admission for assessment and management of symptomatic aortic stenosis, cough with hemoptysis optimization of volume status with CHF.. Coding Level of Care Code Acute [employer]elesales Team Leader for [facility] Fwd Diagnoses Aortic stenosis I35.0 Cardiac valve disease etiology: nonrheumatic Hemoptysis R04.2 CHF (congestive heart failure) I50.32 Heart failure type: diastolic Heart failure chronicity: chronic Atrial fibrillation I48.0 Atrial fibrillation type: paroxysmal Hypertension I10 Hypertension type: essential hypertension History of GI bleed Z87.19
--- NOTE | 2020-02-20 11:16 | CT_ITS ---
WS: [id number] CT CHEST TECHNIQUE: Noncontrast CT of the chest with coronal and sagittal reformatted images. CLINICAL INFORMATION: hemoptysis, dyspnea on exertion COMPARISON: None. DLP: 782.[address] scans at [facility] use at least one of these dose optimization techniques: automat ed exposure control; mA and/or kV adjustment per patient size (includes targeted exams where dose is matched to clinical indication); or iterative reconstruction. FINDINGS: Small bilateral pleural effusions right greater than left with compressive atelectasis in the lung ba ses. Moderate chronic emphysematous changes. Subsegmental atelectasis in the lingula. Slightly hazy g roundglass opacities in both lungs. Aortic calcification. No mediastinal or hilar lymphadenopathy. No axillary lymphadenopathy. Small eso phageal hiatal hernia. Hepatic granulomas. Splenic granulomas. Fatty atrophy of the pancreas. Mild th oracic kyphosis with hypertrophic changes thoracic spine. CT/CT chest wo con [id number] IMPRESSION: 1. Small to moderate right and small left pleural effusions with compressive a telectasis in the lung bases. 2. Slight hazy groundglass opacities in both lungs. Recommend correlation for pneumonia. 3. Cardiomegaly. 4. No mediastinal or hilar lymphadenopathy. 5. Hypertrophic changes thoracic spine.
[2020-02-20 12:00] VITALS: BP 127/55; PULSE 64; RESP 18; TEMP 36.8; O2SAT 95
[2020-02-20] MEDS: ondansetron 4 MG Tablet PO (14:23)
[2020-02-20] MEDS: FUROsemide 10 mg/mL SDV 4mL 40 MG IVP (14:24)
[2020-02-20 16:00] VITALS: TEMP 36.7
[2020-02-20] MEDS: potassium chloride ER 10 mEq Tablet 20 MEQ PO (18:14)
[2020-02-20] MEDS: enoxaparin 100 mg/mL Syringe 80 MG SUBCUT (18:14)
[2020-02-20 19:21] VITALS: BP 115/60; PULSE 57; RESP 16; TEMP 36.8; O2SAT 93
[2020-02-20 23:21] VITALS: BP 124/53; PULSE 57; RESP 18; TEMP 36.7; O2SAT 95
[2020-02-21] VITALS (8 sets, daily range): BP systolic 101–144; BP diastolic 42–58; PULSE 58–74; RESP 18–20; TEMP 36.3–36.8; O2SAT 95–100
[2020-02-21] MEDS: FUROsemide 10 mg/mL SDV 4mL 40 MG IVP ×2 (01:36→14:32)
--- NOTE | 2020-02-21 03:43 | PC.NURSE ---
Patient vomited once at beginning of shift. Patient has not had any nausea since. Patient has no complaints at this time.
[2020-02-21 05:07] LABS: Basophils % 0.8 %; Eosinophils # 0.1 10^3/uL (0.0-0.8); Eosinophils % 1.7 %; Hematocrit 32.3 % (37.0-47.0); Hemoglobin 9.9 g/dL (11.5-15.3); Lymphocytes # 0.9 10^3/uL (0.8-4.8); Lymphocytes % 17.7 %; Mean Corpuscular HGB Conc 30.7 g/dL (30.0-36.0); Mean Corpuscular Hemoglobin 27.7 pg (28.0-34.0); Mean Corpuscular Volume 90.2 fL (81-99); Mean Platelet Volume 10.4 fL (7.4-10.4); Monocytes # 0.4 10^3/uL (0.2-0.9); Monocytes % 8.3 %; Neutrophils # 3.43 10^3/uL (1.8-7.7); Neutrophils % 71.3 %; Nucleated Red Blood Cells % 0 %; Platelet Count 252 10^3/cmm (130-400); Red Blood Count 3.58 10^6/uL (4.1-5.3); Red Cell Distribution Width 12.8 % (12.1-15.1); White Blood Count 4.8 10^3/uL (4.0-10.0)
[2020-02-21 05:50] LABS: Anion Gap 14.2 (5-19); Blood Urea Nitrogen 13 mg/dL (8-23); Carbon Dioxide 29 mmol/L (22-29); Chloride 97 mmol/L (98-107); Creatinine Clr Calc Pharmacy 45.4033; Glucose 123 mg/dL (65-115); Osmolality Calculated 285 mOsm/kg (285-295); Potassium 3.2 mmol/L (3.5-5.1); Sodium 137 mmol/L (136-145)
[2020-02-21] MEDS: enoxaparin 100 mg/mL Syringe 80 MG SUBCUT ×2 (06:10→17:12)
--- NOTE | 2020-02-21 07:54 | P.PN_ITS ---
Subjective Subjective: Interval history: Patient is feeling better. No chest pain or palpitations. Shortness of breath is improving. She is mainly complaining of stomach discomfort because of the constipation. According the patient, she has not had a bowel movement for 5 or 6 days. She get nauseous and sweaty sometimes. No other specific complaints. Medications: Reviewed: Yes Medication Review Details: Current Medications Amlodipine Besylate (Norvasc) 10 mg PO DAILY [facility] Last Admin: 02/20/20 08:43 Dose: 10 mg Documented by: Apixaban (Eliquis) 5 mg PO BID [facility] Last Admin: 02/20/20 08:43 Dose: 5 mg Documented by: Atorvastatin Calcium (Lipitor) 20 mg PO DAILY [facility] Last Admin: 02/20/20 08:41 Dose: 20 mg Documented by: Enoxaparin Sodium (Lovenox) 80 mg 1 mg/kg (80 mg) SUBCUT Q12H [facility] Last Admin: 02/21/20 06:10 Dose: 80 mg Documented by: Furosemide (Lasix) 40 mg IVP Q12H [facility] Last Admin: 02/21/20 01:36 Dose: 40 mg Documented by: Levothyroxine Sodium (Synthroid) 112 mcg PO DAILY [facility] Last Admin: 02/20/20 08:42 Dose: 112 mcg Documented by: Metoprolol Tartrate (Lopressor) 12.5 mg PO BID [facility] Last Admin: 02/20/20 18:15 Dose: 12.5 mg Documented by: Ondansetron HCl (Zofran) 4 mg PO Q6H PRN PRN Reason: NAUSEA AND VOMITING Last Admin: 02/20/20 14:23 Dose: 4 mg Documented by: Pantoprazole Sodium (Protonix) 40 mg PO BID [facility] Last Admin: 02/20/20 18:15 Dose: 40 mg Documented by: Potassium Chloride (Klor-Con 10) 20 meq PO BID [facility] Last Admin: 02/20/20 18:14 Dose: 20 meq Documented by: Ropinirole HCl (Requip) 5 mg PO TID [facility] Last Admin: 02/20/20 19:27 Dose: 5 mg Documented by: Sertraline HCl (Zoloft) 150 mg PO DAILY [facility] Last Admin: 02/20/20 08:42 Dose: 150 mg Documented by: Vitals/I&O/Wt Last Vital Signs Temp 97.9 F 02/21/20 04:06 Pulse 70 02/21/20 04:06 Resp 18 02/21/20 04:06 BP 101/56 02/21/20 04:06 Pulse Ox 97 02/21/20 04:06 02/20/20 02/21/20 02/21/20 22:59 06:59 14:59 Intake Total 120 / 360 300 / 660 Output Total 900 / 900 Balance 120 / 360 -600 / -240 Weight last 48 hrs Weight 180 lb Physical Exam Narrative: EXAM NARRATIVE: GENERAL: The patient is alert and oriented times three. Not in any acute distress. Lightly tachypneic HEENT: No significant pallor, icterus or lymphadenopathy. NECK: Trachea appears to be central. No masses noted. No JVD or thyromegaly appreciated. No carotid bruit. RESPIRATORY: Chest is symmetrical. No intercostals muscle retraction or any accessory muscle activation. There is no chest wall tenderness. Breath sounds are heard bilaterally. Few fine rales at the bases. Intensity of breath sounds are slightly diminished in the bases BREASTS: Deferred. HEART: The PMI is in the 5th left intercostals space just in the midclavicular line. No palpable precordial events. First heart sound is variable. Second heart sound is muffled. ABDOMEN: No vessel pulsations or distention. No tenderness. No organomegaly appreciated. No abdominal bruit. Bowel sounds are normally heard. : Deferred. RECTAL: Deferred. LYMPHATIC: No lymphadenopathy noted in the neck or groin. EXTREMITIES: No edema or cyanosis. No clubbing. The pulses are palpable but weak bilaterally palpated and found to be of low volume and amplitude MUSCULOSKELETAL: No acute joint deformities or swelling SKIN: There are no significant scars or skin rash noted. NEUROPSYCHIATRIC: The patient is alert and oriented x3. Appears to be in a good mood. The higher functions are grossly within normal limits. No tremors or rigidity noted. Data : 02/21/20 04:32 02/21/20 04:32 Other Labs: Laboratory Last Values WBC 4.8 10^3/uL (4.0-10.0) 02/21/20 04:32 RBC 3.58 10^6/uL (4.1-5.3) L 02/21/20 04:32 Hgb 9.9 g/dL (11.5-15.3) L 02/21/20 04:32 Hct 32.3 % (37.0-47.0) L 02/21/20 04:32 MCV 90.2 fL (81-99) 02/21/20 04:32 MCH 27.7 pg (28.0-34.0) L 02/21/20 04:32 MCHC 30.7 g/dL (30.0-36.0) 02/21/20 04:32 RDW 12.8 % (12.1-15.1) 02/21/20 04:32 Plt Count 252 10^3/cmm (130-400) 02/21/20 04:32 MPV 10.4 fL (7.4-10.4) 02/21/20 04:32 Neut % (Auto) 71.3 % 02/21/20 04:32 Lymph % (Auto) 17.7 % 02/21/20 04:32 [place] % (Auto) 8.3 % 02/21/20 04:32 Eos % (Auto) 1.7 % 02/21/20 04:32 Baso % (Auto) 0.8 % 02/21/20 04:32 Neut # (Auto) 3.43 10^3/uL (1.8-7.7) 02/21/20 04:32 Lymph # (Auto) 0.9 10^3/uL (0.8-4.8) 02/21/20 04:32 [place] # (Auto) 0.4 10^3/uL (0.2-0.9) 02/21/20 04:32 Eos # (Auto) 0.1 10^3/uL (0.0-0.8) 02/21/20 04:32 Baso # (Auto) 0.0 10^3/uL (0.0-0.1) 02/21/20 04:32 Nucleated RBC % (auto) 0 % 02/21/20 04:32 Nucleated RBCs # 0.0 /100WBC 02/21/20 04:32 PT 15.60 SECONDS (12.1-14.9) H 02/19/20 17:15 INR 1.20 (0.8-1.2) 02/19/20 17:15 Sodium 137 mmol/L (136-145) 02/21/20 04:32 Potassium 3.2 mmol/L (3.5-5.1) L 02/21/20 04:32 Chloride 97 mmol/L (98-107) L 02/21/20 04:32 Carbon Dioxide 29 mmol/L (22-29) 02/21/20 04:32 Anion Gap 14.2 (5-19) 02/21/20 04:32 BUN 13 mg/dL (8-23) 02/21/20 04:32 Creatinine 1.0 mg/dL (0.5-0.9) H 02/21/20 04:32 GFR Calculation Not Reportable 02/21/20 04:32 Glucose 123 mg/dL (65-115) H 02/21/20 04:32 Calculated Osmolality 285 mOsm/kg (285-295) 02/21/20 04:32 Lactic Acid 0.8 mmol/L (0.5-2.2) 02/19/20 17:15 Calcium 9.0 mg/dL (8.5-10.5) 02/21/20 04:32 Magnesium 2.1 mg/dL (1.7-2.3) 02/19/20 17:15 Total Bilirubin 0.5 mg/dL (0.15-1.2) 02/19/20 17:15 AST 22 U/L (0-32) 02/19/20 17:15 ALT 9 U/L (0-33) 02/19/20 17:15 Alkaline Phosphatase 85 IU/L (35-105) 02/19/20 17:15 Troponin T Baseline 16 ng/L (0-10) H 02/19/20 17:15 Troponin T 120 Minute 16.40 ng/L (0-10) H 02/19/20 19:41 Delta Troponin T 0.40 ABS# (0-10) 02/19/20 19:41 Troponin T Hi Sens 6Hr 15.67 ng/L (0-10) H 02/19/20 23:00 Troponin T Hi Sens 6Hr Delta -0.33 ng/L (0-12) L 02/19/20 23:00 NT-Pro-B Natriuret Pep 3135 pg/mL (0-450) H 02/19/20 17:15 Total Protein 6.9 g/dL (6.6-8.7) 02/19/20 17:15 Albumin 4.2 g/dL (3.5-5.2) 02/19/20 17:15 Globulin 2.7 g/dL (1.3-4.6) 02/19/20 17:15 A&P Assessment and plan (1) Acute on chronic diastolic (congestive) heart failure: Most likely related to left regular diastolic dysfunction and the severe aortic valve stenosis. Her heart failure seems to be getting compensated. Status: Acute (2) Chronic episodic atrial fibrillation: Patient is off the Eliquis and he is on Lovenox. No bleeding complications. Hemoglobin seems to be remaining stable. Status: Acute (3) Severe aortic valve stenosis: As mentioned above. Patient seems to have a low gradient severe aortic valve stenosis. Status: Acute (4) Moderate to severe mitral regurgitation: This also may need to be intervened. Status: Acute (5) Benign essential hypertension with target blood pressure below 140/90: Currently the patient is normotensive. We will continue on the current medications. Status: Acute (6) Dyslipidemia (high LDL; low HDL): May continue on the current medications. Status: Acute Additional A&P Information I discussed the patient about further management options. Because of the severe aortic valve stenosis complicated with a heart failure, she may benefit from valve intervention. Prior to the valve surgery, she requires a cardiac catheterization. The risk of bleeding, hematoma, vascular injury, myocardial infarction, CVA, renal failure and other concomitant complications were explained in detail. Because of the patient's renal insufficiency and the anemia, she carries a high risk for bleeding and contrast-induced nephropathy. This was discussed in detail with the patient which she understood well. We may hold off on the evening Lasix. We will do a BMP and CBC in the morning. Going to schedule further cardiac colorization for tomorrow. We may do both right and left heart catheterization. Based on the results, further recommendations will be made. Attestations Medical Necessity Statement*: Patient requires continued hospital stay for close monitoring and further management Coding Level of Care Code Acute Telephone Directory Distributor Driver for Foster [place] Medical Decision Making Moderate Complexity Diagnoses Acute on chronic diastolic (congestive) heart failure I50.33 Chronic episodic atrial fibrillation I48.20 Severe aortic valve stenosis I35.0 Moderate to severe mitral regurgitation I34.0 Benign essential hypertension with target blood pressure below 140/90 I10 Dyslipidemia (high LDL; low HDL) E78.5 Time Spent (min) 30
[2020-02-21] MEDS: sertraline 100 mg Tablet 150 MG PO (08:56)
[2020-02-21] MEDS: ondansetron 4 MG Tablet PO (08:56)
[2020-02-21] MEDS: ropinirole 2 mg Tablet 5 MG PO ×3 (08:56→20:29)
[2020-02-21] MEDS: potassium chloride ER 10 mEq Tablet 20 MEQ PO ×2 (08:56→17:13)
[2020-02-21] MEDS: levothyroxine 112 mcg Tablet PO (08:56)
[2020-02-21] MEDS: pantoprazole DR 40 mg Tablet PO ×2 (08:56→17:13)
[2020-02-21] MEDS: amlodipine 10 mg Tablet PO (08:57)
[2020-02-21] MEDS: bisacodyl 10 mg Supp PR (08:57)
[2020-02-21] MEDS: atorvastatin 40 mg Tablet 20 MG PO (08:57)
--- NOTE | 2020-02-21 10:35 | PC.CHAP ---
Pastoral Care Encounter/Spiritual Assessment Type of Contact [] Declined general counselor visit [] Patient/Family/Request visit [] Outpatient visit [] Follow-up visit [] Physician referral [] Code/Alert [x] Routine visit [] Staff referral [] Actively dying [] Patient sleeping [] Family support [] [] Out of room [] Palliative care [] [x] Receiving care in room [] Pre-surgical visit [] Trauma [] Long length of stay [] ICU visit [] Other: Relational/Emotional Strength [x] Patient feels connected with others/family/visitors/staff [x] Distress [] Loneliness/isolation [] Abandonment Spirituality of Patient [x] Person of Karen [] Attends Cheondoism of their Karen [x] Believes in Prayer [] Reads Bible or Anglican materials [] There are Spiritual issues to be addressed Wood Finisher Interventions [x] Prayer [x] Active listening [x] Non-anxious presence [x] Spiritual/emotional support [] Crisis/trauma care [x] Spiritual counseling [] Bereavement support [] Provided bereavement packet [] Provided Bible/devotional materials [] Provided toy/stuffed animal, coloring book to patient or family member [] Provided Communion [] Anointing/[place] [] Salvation [x] Completed spiritual assessment [] Other: Impact on Illness or Injury [] Angry [x] Fearful [] Anxious [] Often cries [] Exhaustion [] Unable to work [] Unable to attend samaritan [] Unable to walk/stand [] Unable to read [] Unable to drive [] Unable to eat/drink [] Unable to sleep [] Unable to be with family [] Patient intubated [] Other: Summary Very weak is stable at this point, negative about recovery, has good attitude Time spent with patient 10 mins
[2020-02-21] MEDS: polyethylene glycol 3350 Pkt 17 gm PO ×2 (10:50→17:12)
--- NOTE | 2020-02-21 14:23 | PC.NURSE ---
PATIENT CONTINUES TO HAVE DIFFICULTY HAVING A BOWEL MOVEMENT DESPITE ADMINISTRATION OF SUPPOSITORY. NOTIFIED DR. HARRIS OF PERSISTENT NAUSEA. ORDERED MAGNESIUM CITRATE X1 BOTTLE AND HAVE ONDANSETRON SWITCHED FROM PO TO IV DOSING.
[2020-02-21] MEDS: ondansetron 2 mg/ML SDV 2 mL 4 MG IVP (14:32)
[2020-02-21] MEDS: magnesium citrate Btl 296 mL PO (14:32)
[2020-02-21] MEDS: metoclopramide 5 mg/mL SDV 2 mL IVP (18:25)
[2020-02-21] MEDS: diphenhydrAMINE 50 mg/mL SDV 1mL 12.5 MG IVP (18:29)
--- NOTE | 2020-02-21 18:48 | PC.NURSE ---
ADMINISTERED MILK AND MOLASSES ENEMA PER DR. HARRIS'S ORDER.
--- NOTE | 2020-02-21 18:54 | P.PN_ITS ---
Subjective Subjective: Interval history: Today she has been having recurrent episodes of nausea, vomiting. Has not had any appetite. Denies abdominal pain. Says has not been passing flatus. Vitals/I&O/Wt Last Vital Signs Temp 97.3 F L 02/21/20 16:00 Pulse 72 02/21/20 16:00 Resp 20 H 02/21/20 16:00 BP 144/56 02/21/20 16:00 Pulse Ox 100 02/21/20 16:00 02/21/20 02/21/20 02/21/20 06:59 14:59 22:59 Intake Total 300 / 660 120 / 120 120 / 240 Output Total 900 / 900 600 / 600 Balance -600 / -240 120 / 120 -480 / -360 Physical Exam Const: COMMON NORMALS: no acute distress and patient oriented x3 OTHER: A wake, alert, reclined in bed. Comfortable, pleasant, conversant. HENMT: COMMON NORMALS: oropharynx normal Neck/C-Spine: COMMON NORMALS: no JVD Resp: COMMON NORMALS: normal respiratory effort and clear to auscultation bilaterally AUSCULTATION: clear to auscultation bilaterally Cardio: COMMON NORMALS: no JVD, regular rhythm, S1 normal heart sound present and S2 normal heart sound present RHYTHM: regular rhythm HEART SOUNDS: S1 normal heart sound present, S2 normal heart sound present and Murmur heart sound present systolic GI: COMMON NORMALS: Soft to palpation and non-tender INSPECTION: No abdominal distension AUSCULTATION: Yes Hypoactive bowel sounds present PALPATION: Yes Soft to palpation Extremity: COMMON NORMALS: no joint enlargement and no pedal edema GENERAL: Yes edema (trace) Neuro: COMMON NORMALS: patient oriented x3 and moves all extremities Skin: COMMON NORMALS: no rashes or lesions noted GENERAL SKIN EXAM: no rashes or lesions noted Data : 02/21/20 04:32 02/21/20 04:32 A&P Assessment and plan (1) Vomiting: This is several episodes of vomiting today. Still no bowel movement despite trying prune juice yesterday, suppository today, MiraLAX, mag citrate. Bowel sounds sound somewhat sluggish. She does have history of gastritis despite being on PPI noted on EGD in January 2019. At that same time also had colonoscopy with polyp removal. Suspect her episodes of vomiting may be related to combination of possibly gastritis, also has been having obstipation, reports has not had a bowel movement in close to a week. Was given an enema, and appears may be about to have a bowel movement. Otherwise PPI has been switched to IV. Added Reglan as needed case not responsive to Zofran. Added sucralfate. Discussed with nursing staff in case of recurrence of vomiting again to call in for placement of NG tube. Abdomen is otherwise soft, nontender on examination with deep palpation. If symptoms persist consider additional imaging. Will check Covid 19 rapid antigen. Status: Acute (2) Aortic stenosis: Her dyspnea on exertion may be secondary to aortic stenosis. Discussed with cardiology. She is undergoing additional work-up with consideration of a ortic valve replacement. After optimization of volume status template reproduction technician is planning for additional assessment with coronary angiogram. Patient has some history of GI bleeding in 2019, although has been on Eliquis, and hemoglobin appears to be stable. Status: Acute Qualifiers: Cardiac valve disease etiology: nonrheumatic Qualified Code(s): I35.0 - Nonrheumatic aortic (valve) stenosis (3) Hemoptysis: Reports some intermittent cough, says that has been having some blood mixed in with phlegm last time 3 days ago after prolonged cough episode. I am not sure whether this may be secondary to aortic stenosis which is a possibility. CT chest without any mass, with small to moderate right and small left pleural effusions. Slight hazy groundglass opacities noted. She has been afebrile, no chills, and is not short of breath. No headache. He is having some vomiting. We will check rapid coronavirus antigen test. Noted cardiomegaly. Status: Acute (4) CHF (congestive heart failure): Cardiology is optimizing her volume status with diuresis prior to additional assessment by car angiography. Status: Acute Qualifiers: Heart failure type: diastolic Heart failure chronicity: chronic Qualified Code(s): I50.32 - Chronic diastolic (congestive) heart failure (5) Atrial fibrillation: Currently episodes of bradycardia down into high 30s. Does not appear to be symptomatic. Cardiology aware, monitoring for now. Beta-kar withheld. Eliquis for now switched to Lovenox anticipation of additional procedures. Status: Acute Qualifiers: Atrial fibrillation type: paroxysmal Qualified Code(s): I48.0 - Paroxysmal atrial fibrillation (6) Hypertension: At goal. Monitor. Status: Acute Qualifiers: Hypertension type: essential hypertension Qualified Code(s): I10 - Essential (primary) hypertension (7) History of GI bleed: History of GI bleed and had upper and lower endoscopy back in January 2019. Has been on Eliquis anticoagulation. Hemoglobin appears to be stable. Continue PPI. Gastritis was noted on EGD. During colonoscopy had polypectomy. Status: Acute Additional A&P Information Hemorrhoids: Likely secondary to constipation. Will need to establish bowel regimen on discharge. Follow-up with PCP. Hypertension: Currently normotensive, A. fib without RVR, continue Lovenox in place of Eliquis. Metoprolol withheld. Full code DVT prophylaxis: On therapeutic anticoagulation Attestations Medical Necessity Statement*: Continue admission for assessment management of recurrent vomiting, obstipation, additional assessment of dyspnea on exertion, severe aortic stenosis. Coding Level of Care Code Acute Telegraphic Instrument Supervisor for Chg Fwd Diagnoses Vomiting R11.10 Aortic stenosis I35.0 Cardiac valve disease etiology: nonrheumatic Hemoptysis R04.2 CHF (congestive heart failure) I50.32 Heart failure type: diastolic Heart failure chronicity: chronic Atrial fibrillation I48.0 Atrial fibrillation type: paroxysmal Hypertension I10 Hypertension type: essential hypertension History of GI bleed Z87.19
--- NOTE | 2020-02-21 18:54 | PC.NURSE ---
IF THE PATIENT CONTINUES TO VOMIT WITH NO BOWEL MOVEMENTS, DR HARRIS ORDERED BOTH DAY AND UTILIZATION COORDINATOR DURING REPORT TO INSERT AN NG TUBE.
--- NOTE | 2020-02-21 19:18 | PC.NURSE ---
Received report from Marcia Carpenter RN. Patient resting in bed. Patient was given enema as ordered prior to shift change. Patient has had a large watery stool (no solid). Patient being COVID tested this evening. Patient being moved to room 106 for isolation precautions. Instructed patient regarding testing and moving to new room. Patient expressed complete understanding.
[2020-02-21] MEDS: sucralfate 1 gm/10 mL Oral Liq UDC PO (20:29)
[2020-02-21 21:36] LABS: SARS Covid-2 Antigen Negative (Negative)
--- NOTE | 2020-02-21 23:36 | PC.NURSE ---
Patient reports having several small loose bms. Also denies any nausea presently.
[2020-02-22] VITALS (38 sets, daily range): BP systolic 78–134; BP diastolic 25–70; PULSE 50–82; RESP 14–25; TEMP 36.4–36.8; O2SAT 94–99
[2020-02-22] MEDS: FUROsemide 10 mg/mL SDV 4mL 40 MG IVP (03:26)
[2020-02-22 05:33] LABS: Anion Gap 13.4 (5-19); Blood Urea Nitrogen 13 mg/dL (8-23); Calcium 9.6 mg/dL (8.5-10.5); Carbon Dioxide 30 mmol/L (22-29); Chloride 99 mmol/L (98-107); Glucose 120 mg/dL (65-115); Osmolality Calculated 289 mOsm/kg (285-295); Potassium 3.4 mmol/L (3.5-5.1); Sodium 139 mmol/L (136-145)
[2020-02-22 05:36] LABS: Basophils # 0.1 10^3/uL (0.0-0.1); Basophils % 0.7 %; Eosinophils # 0.1 10^3/uL (0.0-0.8); Hematocrit 37.7 % (37.0-47.0); Hemoglobin 11.5 g/dL (11.5-15.3); Lymphocytes # 1.2 10^3/uL (0.8-4.8); Mean Corpuscular HGB Conc 30.5 g/dL (30.0-36.0); Mean Corpuscular Hemoglobin 28.5 pg (28.0-34.0); Mean Corpuscular Volume 93.3 fL (81-99); Mean Platelet Volume 10.5 fL (7.4-10.4); Monocytes # 0.5 10^3/uL (0.2-0.9); Monocytes % 7.9 %; Neutrophils # 4.84 10^3/uL (1.8-7.7); Neutrophils % 72.3 %; Nucleated Red Blood Cells % 0 %; Platelet Count 301 10^3/cmm (130-400); Red Blood Count 4.04 10^6/uL (4.1-5.3); White Blood Count 6.7 10^3/uL (4.0-10.0)
[2020-02-22] MEDS: sodium chloride 0.9% 1,000 ML 50 ML IV (05:55)
[2020-02-22] MEDS: diphenhydrAMINE 50 mg Capsule PO (05:55)
[2020-02-22] MEDS: enoxaparin 100 mg/mL Syringe 80 MG SUBCUT (05:55)
--- NOTE | 2020-02-22 06:04 | PC.NURSE ---
Lovenox Morning dose of Lovenox given as ordered at this time. Informed MING Flores in [facility] that medication was given.
--- NOTE | 2020-02-22 06:59 | XACV_ITS ---
Exam Room: [facility] Ht: 160 cm Wt: 82 kg BSA: 1.94 m2 Gender: Female : 1940 Any Known Allergies: Other Exam Priority: Routine Procedure(s): Procedure Description: Diagnostic procedure Procedure Description: Left Heart Catheterization Procedure Description: Right Heart Catheterization Diagnostic Cath Status: Elective Diagnostic Findings * The left main is extremely short vessel , which bifurcates at the ostium to LAD and left circumflex artery. * The left anterior descending artery is a medium caliber vessel which appears to wrap around the LV apex minimally. Some intimal irregularities were noted in the proximal to mid segment. No significant stenotic lesions were noted.\. * The left circumflex artery is a relatively large caliber dominant vessel with no significant stenotic lesions. * The right coronary artery is a relatively small caliber nondominant vessel with no significant stenotic lesions. Conclusions 1. This is an 80-year-old white female with a history of hypertension, dyslipidemia, chronic atrial fibrillation, presented with recurrent episodes of diastolic heart failure. She was found to have possibly severe low gradient aortic valve stenosis by echocardiogram. Her left ventricular ejection fraction was around 50%. For further evaluation of her hemodynamics, a right and left heart catheterization with right and left coronary angiogram was recommended. Patient underwent the procedure this morning. The findings are as follows. 2. Patient has left dominant coronary circulation. The left main is practically nonexistent. No significant obstruction was noted in the LAD, circumflex and right coronary arteries. The right heart catheterization revealed a PA pressure of 31/14 with a mean of 20. The RV pressure was 38 and the right atrial pressure was 2. Pulmonary capillary wedge pressure was 10. Cardiac output was 3.0 with an index of 2.0 by Ivette's method. The LVEDP was 24 mmHg. The mean gradient across the aortic valve is 40 with a peak to peak gradient of 46 mmHg.. Recommendations * Continue current medical management and risk factor modification. Diagnostic RX Recommendation: other cardiac therapy w/o CABG/PCI LV EDP: 24 mmHg Left Ventriculography Findings: * The LV gram was not performed because of the patient's history of chronic kidney disease. Pressures Phase:Rest AO : 123 / 61 ( 85 ) @ 2:50:00 AM 118 / 57 ( 81 ) @ 2:51:00 AM LV : 176 / -1 / @ 2:50:00 AM 173 / -4 / @ 2:50:00 AM 172 / -5 / @ 2:50:00 AM RV : 38 / -6 / @ 2:32:00 AM PA : 31 / 14 ( 20 ) @ 2:31:00 AM RA : a wave = v wave = mean = 2 @ 2:33:00 AM O2 Content Phase:Rest PA : O2 Content O2: 57.5 @ 2:50:00 AM Saturations Phase:Rest AO : 88 @ 2:50:00 AM RA : 59 @ 2:51:00 AM RV : 57 @ 2:50:00 AM PA : 58 @ 2:50:00 AM Cardiac Output Phase:Rest Ivette : 3 @ 2:50:00 AM Ivette Cardiac Index: 2 @ 2:50:00 AM Valves Phase:DefaultPhase AV : 44.0 @ 8:02:07 AM 44.0 @ 8:02:07 AM AV Mean Gradient: 40.0 @ 8:02:07 AM Clinical Evaluation EBL: 5mL-10mL Procedural Details Procedure Consent Obtained. Admit Source: In Patient. Pre-Procedure Time Out. Identified patient by full name and date of as verbalized by the patient/guarantor. Does the consent match the physician's order: Yes. Accurate & Complete Informed Consent: Yes. Inpatient/Outpatient History & Physical on Chart: Yes. If H&P is completed, is and addenduem needed: No; If yes, is the addendum complete: N/A. Visualize and Verify Site with Patient/Guarantor: N/A. Relevant Radiology Images available: N/A. Pre-op teaching completed and patient verbalized understanding. The risks, benefits, and alternatives of sedation and/or procedure were discussed by physician. The patient agrees to continue. Procedure started. Correct patient, site and procedure confirmed by cath team. PERRLA. Strong, equal hand technical services coordinator bilaterally. Lungs clear x 5 lobes. IV Site on Arrival: 20 gauge in the right anticubital. Pre Procedural Pulses: bilateral dorsalis pedis was 3+. Pre Procedural Pulses: bilateral posterior tibial was 3+. Pre Procedural Pulses: bilateral radial was 3+. Oxygen started at 2liters/min via nasal canula. bilateral groins was prepped with chloroprep then draped in the usual sterile fashion. right radial was prepped with chloroprep then draped in the usual sterile fashion. Physician notified. Baseline sample Acquired. HR: 72 BPM. 1L NS w/40 Kcl @ 100mL/hr. Physician arrived. patient put on room air. Physician scrubbed in. Immediate Pre-Procedure Time Out. Correct Patient: Yes; Correct Procedure: Yes; Correct Site: Yes; Correct Patient Position: Yes; Correct Supplies: Yes; Dried Flammable Prep: Yes; Blood Products Available: N/A;. Lidocaine 1% infiltrated to the right groin. Venous access obtained with a micropuncture set. [place] inserted through sheath. drawing PA sat. drawing RV sat. drawing RA sat. swan out. Lidocaine 1% infiltrated to the right radial. Arterial access obtained. A 5 maltese Remberto catheter in over wire. AO sat drawn. patient placed on 2LPM NC. Multiple views taken of left coronary artery. Catheter out. A 5 maltese JR4 catheter in over wire. EDP Sample taken: LV 176/-2,26; HR: 54 BPM; SpO2: 97%. Pullback taken: LV 172/-6,21; AO 123/61(85); Mean: 40mmHg, Peak to Peak: 44mmHg, SEP: 21sec/min; HR: 79 BPM; SpO2: 97%. Multiple views taken of right coronary artery. Catheter out. LV EDP: 24. TR band placed. Hemostasis obtained. Sheath(s) removed and manual pressure held until hemostasis was achieved. Sterile 4x4 and Op-site applied to the puncture site. No oozing or hematoma noted. Post sheath removal instructions were given and the patient verbalized understanding. Post Procedure: Pulses reassessed and unchanged. PERRLA. Strong, equal hand technical services coordinator bilaterally. No VTE prophylaxis required. Contrast type used: Omnipaque 300 mgI/mL, 500 mL bottle. Contrast Material : Omnipaque 98 ml. Medication's Wasted: Heparin = 1000 units. Medication's Wasted: Lidocaine 1% = 2 mL. Medication's Wasted: Nitro = 49.8 mg. Total IV fluids: 350 mL. [facility] Clinical Fraility Score: 4: Vulnerable. 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 Chest Pain Symptom Assessment: Non-anginal Chest Pain. Cardiovascular Instability: No,. Post-op diagnosis: severe aortic valve stenosis, diostolic heart failure. Complications: none. Estimated blood loss: 5mL-10mL. Procedure completed. A TR Band was successful obtaining hemostatsis at the Right Radial artery insertion site. A Manual Compression was successful obtaining hemostatsis at the Right Femoral vein insertion site. Patient transferred by bed to 1st floor. Vital chart was stopped. Access Site Site: Right Femoral vein Sheath Size: 6 Fr Hemostasis Method: Manual Compression Hemostasis Success: Successful Site: Right Radial artery Sheath Size: 6 Fr Hemostasis Method: TR Band Hemostasis Success: Successful Procedure Medications Start: 7:17 AM Stop: 7:17 AM Medication: Versed Amount: 1 mg Route: I.V. Start: 7:18 AM Stop: 7:18 AM Medication: Fentanyl Amount: 50 mcg Route: I.V. Start: 7:39 AM Stop: 7:39 AM Medication: Verapamil Amount: 5 mg Route: I.A. Start: 7:40 AM Stop: 7:40 AM Medication: 0.9% Saline Amount: 250 ml Route: I.V. bolus Start: 7:40 AM Stop: 7:40 AM Medication: Nitrogylcerin Amount: 200 mcg Route: I.A. I, the attending physician, have reviewed and verified all procedure medications. Yes, all medications given per verbal order History/Risk Factors Hypertension: Yes Dyslipidemia: Yes Peripheral Arterial Disease (PAD): No Myocardial Infarction (ND): No Obesity: No Renal Disease: No Tobacco Use: Former Prior Interventions PCI: No CABG: No Valve Surgery: No Report Signatures Finalized by Dr Karthik Keenan MD [facility] on 02/22/2020 09:12 AM
--- NOTE | 2020-02-22 07:16 | W.PM.OPSUD ---
Surgery/Procedure H&P Update DATE OF PROCEDURE: February 22, 2020 DATE H&P PERFORMED: 02/20/20 H&P UPDATE INFORMATION: I have reviewed H&P completed within last 30 days, I have examined patient prior to procedure and No changes to prior documentation PREOP DIAGNOSIS: Aortic stenosis/CHF PLANNED PROCEDURE: Right and left heart catheterization with coronary angiogram and possible PCI Operation Date: 02/22/20 07:00 Proposed Procedures p Cardiac Catheterization(Bilateral) - Karthik Keenan MD PATIENT REASSESSED PRIOR TO SEDATION, WITH NO CHANGE NOTED: Yes PHYSICAL EXAM: alert, oriented x 3 and clear to auscultation bilaterally AIRWAY EVAL/ANESTHESIA PLAN: normal airway, see other exam findings, ASA III, Monitored Anesthesia, Local Anesthesia, Risks, benefits & alternatives of sedation and/or procedure discussed and Patient agrees to continue as planned
[2020-02-22] MEDS: sodium chlor 0.9% + KCl 40 mEq 40 MEQ/1,000 ML BAG 100 MEQ IV ×2 (08:10→20:11)
--- NOTE | 2020-02-22 08:30 | PC.NURSE ---
Patient arrived to floor from manufacturing laborer at 0810. 2 nurse verification of right wrist and groin. TR band intact to right wrist with 16 ml of air, asymptomatic. Dressing to right groin CDI, site asymptomatic. Neurovascular assessment WNL. Nurse to continue monitor.
[2020-02-22] MEDS: gabapentin 400 mg Capsule PO ×3 (09:31→20:12)
[2020-02-22] MEDS: cyanocobalamin 1,000 mcg Tablet 1000 MCG PO (09:32)
[2020-02-22] MEDS: losartan 50 mg Tablet PO (09:32)
[2020-02-22] MEDS: levothyroxine 125 mcg Tablet PO (09:32)
[2020-02-22] MEDS: potassium chloride ER 10 mEq Tablet PO ×3 (09:32→20:11)
[2020-02-22] MEDS: pantoprazole DR 40 mg Tablet PO (09:32)
--- NOTE | 2020-02-22 09:36 | P.PN_ITS ---
Subjective Subjective: Interval history: Patient had a bowel movement yesterday and is feeling much better. Denies any chest pain or palpitations. She underwent the left heart catheterization with a left and right coronary angiogram today. She was found to have no significant obstructive coronary artery disease. She had a high LVEDP and a mean gradient across aortic valve was found to be 40 mmHg. Medications: Reviewed: Yes Medication Review Details: Current Medications Amlodipine Besylate (Norvasc) 10 mg PO DAILY [facility] Last Admin: 02/21/20 08:57 Dose: 10 mg Documented by: Apixaban (Eliquis) 5 mg PO BID [facility] Last Admin: 02/20/20 08:43 Dose: 5 mg Documented by: Atorvastatin Calcium (Lipitor) 20 mg PO DAILY [facility] Last Admin: 02/21/20 08:57 Dose: 20 mg Documented by: Cyanocobalamin (Vitamin B-12) 1,000 mcg PO DAILY [facility] Diphenhydramine HCl (Benadryl) 12.5 mg IVP Q8H PRN PRN Reason: Nausea and Vomiting, Severe Last Admin: 02/21/20 18:29 Dose: 12.5 mg Documented by: Furosemide (Lasix) 40 mg IVP Q12H [facility] Last Admin: 02/22/20 03:26 Dose: 40 mg Documented by: Gabapentin (Neurontin) 400 mg PO TID [facility] Hydroxyzine Pamoate (Vistaril) 25 mg PO TID PRN PRN Reason: Rash Sodium Chloride (Sodium Chloride 0.9%) 1,000 mls @ 50 mls/hr IV .Q20H ONE Stop: 02/23/20 02:59 Last Admin: 02/22/20 05:55 Dose: 50 mls/hr Documented by: Potassium Chloride/Sodium Chloride (Sodium Chlor 0.9% + Kcl 40 Meq) 40 meq in 1,000 mls @ 100 mls/hr IV .Q10H [facility] Levothyroxine Sodium (Synthroid) 112 mcg PO DAILY [facility] Last Admin: 02/21/20 08:56 Dose: 112 mcg Documented by: Levothyroxine Sodium (Synthroid) 125 mcg PO DAILY [facility] Losartan Potassium (Cozaar) 50 mg PO DAILY [facility] Metoclopramide HCl (Reglan) 5 mg IVP Q8H PRN PRN Reason: NAUSEA AND VOMITING Last Admin: 10/22/20 18:25 Dose: 5 mg Documented by: Ondansetron HCl (Zofran) 4 mg IVP Q6H PRN PRN Reason: NAUSEA AND VOMITING Last Admin: 02/21/20 14:32 Dose: 4 mg Documented by: Pantoprazole Sodium (Protonix) 40 mg IVP Q12H [facility] Pantoprazole Sodium (Protonix) 40 mg PO DAILY [facility] Polyethylene Glycol (Miralax) 17 gm PO BID [facility] Last Admin: 02/21/20 17:12 Dose: 17 gm Documented by: Polyethylene Glycol (Miralax) 17 gm PO DAILY [facility] Potassium Chloride (Klor-Con 10) 20 meq PO BID [facility] Last Admin: 02/21/20 17:13 Dose: 20 meq Documented by: Potassium Chloride (Klor-Con 10) 10 meq PO TID [facility] Ropinirole HCl (Requip) 5 mg PO TID [facility] Last Admin: 02/21/20 20:29 Dose: 5 mg Documented by: Sertraline HCl (Zoloft) 150 mg PO DAILY [facility] Last Admin: 02/21/20 08:56 Dose: 150 mg Documented by: Sucralfate (Carafate Oral Liq) 1 gm PO AC&BEDTIME [facility] Last Admin: 02/21/20 20:29 Dose: 1 gm Documented by: Vitamin E (Vitamin E) 400 unit PO DAILY [facility] Vitals/I&O/Wt Last Vital Signs Temp 97.6 F 02/22/20 08:00 Pulse 82 02/22/20 03:28 Resp 22 H 02/22/20 03:28 BP 101/54 02/22/20 03:28 Pulse Ox 99 02/22/20 03:28 02/21/20 02/22/20 02/22/20 22:59 06:59 14:59 Intake Total 120 / 240 Output Total 600 / 600 700 / 1300 Balance -480 / -360 -700 / -1060 Physical Exam Narrative: EXAM NARRATIVE: GENERAL: The patient is alert and oriented times three. Not in any acute distress. Lightly tachypneic HEENT: No significant pallor, icterus or lymphadenopathy. NECK: Trachea appears to be central. No masses noted. No JVD or thyromegaly appreciated. No carotid bruit. RESPIRATORY: Chest is symmetrical. No intercostals muscle retraction or any accessory muscle activation. There is no chest wall tenderness. Breath sounds are heard bilaterally. Few fine rales at the bases. Intensity of breath sounds are slightly diminished in the bases BREASTS: Deferred. HEART: The PMI is in the 5th left intercostals space just in the midclavicular line. No palpable precordial events. First heart sound is variable. Second heart sound is muffled. Ejection systolic murmur of grade 4/6 in the aortic area with a transmission to both carotids. No diastolic murmurs. Still murmur grade 3/6 in the mitral area. ABDOMEN: No vessel pulsations or distention. No tenderness. No organomegaly appreciated. No abdominal bruit. Bowel sounds are normally heard. : Deferred. RECTAL: Deferred. LYMPHATIC: No lymphadenopathy noted in the neck or groin. EXTREMITIES: No edema or cyanosis. No clubbing. The pulses are palpable but weak bilaterally palpated and found to be of low volume and amplitude MUSCULOSKELETAL: No acute joint deformities or swelling SKIN: There are no significant scars or skin rash noted. NEUROPSYCHIATRIC: The patient is alert and oriented x3. Appears to be in a good mood. The higher functions are grossly within normal limits. No tremors or rigidity noted. Const: COMMON NORMALS: alert Resp: COMMON NORMALS: clear to auscultation bilaterally AUSCULTATION: clear to auscultation bilaterally Neuro: SENSORIUM/ORIENTATION: Yes alert Data : 02/22/20 04:30 02/22/20 04:30 A&P Assessment and plan (1) Acute on chronic diastolic (congestive) heart failure: Most likely related to left regular diastolic dysfunction and the severe aortic valve stenosis. Her heart failure seems to be getting compensated. Her LVEDP was 26 with right atrial pressure of 2. Currently she is getting IV fluid, normal saline with potassium. Status: Acute (2) Chronic episodic atrial fibrillation: Patient is off the Eliquis and he is on Lovenox. No bleeding compl ications. Hemoglobin seems to be remaining stable. Will put her back on the Eliquis tomorrow. Status: Acute (3) Severe aortic valve stenosis: As mentioned above. The mean gradient across the aortic valve is found to be 40 mmHg. Status: Acute (4) Moderate to severe mitral regurgitation: Patient may benefit from a transesophageal echo, to further evaluate the aortic valve and the mitral valve. Since she is wanting to go for the catheter base management of the aortic valve, the LISA may be done in that facility Status: Acute (5) Benign essential hypertension with target blood pressure below 140/90: Currently the patient is normotensive. We will continue on the current medications. Status: Acute (6) Dyslipidemia (high LDL; low HDL): May continue on the current medications. Status: Acute Additional A&P Information I contacted Dr. Diego at the [facility]. We will send the cardiac origination data, echocardiogram and the other medical records to Dr. Diego's office. The patient is remaining stable, may be discharged home tomorrow. We may do a CBC and BMP in the morning. She may be restarted on the Eliquis also tomorrow. Dr. Diego's office will be contacting the patient regarding her appointment for further evaluation and management of the aortic valve stenosis. Attestations Medical Necessity Statement*: Possible discharge home tomorrow Coding Level of Care Code Acute Proof Machine Operator Supervisor for g Fwd Diagnoses Acute on chronic diastolic (congestive) heart failure I50.33 Chronic episodic atrial fibrillation I48.20 Severe aortic valve stenosis I35.0 Moderate to severe mitral regurgitation I34.0 Benign essential hypertension with target blood pressure below 140/90 I10 Dyslipidemia (high LDL; low HDL) E78.5
[2020-02-22] MEDS: sodium chlor 0.9% + KCl 40 mEq 40 MEQ/1,000 ML BAG 250 MEQ IV (12:00)
--- NOTE | 2020-02-22 14:41 | PC.NURSE ---
Patient BP 78/39, HR 58, patient lethargic. Patient laid flat and put in trendelenburg positioning. Not much improvement noted in BP. Dr. Keenan notified via telephone at 1118. Physician gave telephone order to administer 250 ml bolus one time. Bolus administered via continuous IV fluids, see titration flowsheet. Nurse to continue to monitor. Nurse contacted Dr. Keenan via telephone again at 1138. no response in BP to bolus, patient is more lethargic. cath insertion sites are asymptomatic. Physician to report to bedside to evaluate patient. At bedside Dr. Keenan gave verbal order to administer another 250 ml bolus. Once bolus is complete, administer 500 ml over 2 hours. Once 500 ml bolus complete, return fluids to continuous order of 100 ml/hr, RBVO. See infusion flowsheet for titration of fluids. Nurse to continue to monitor.
--- NOTE | 2020-02-22 14:59 | PC.NURSE ---
TR band off at 1300. 16 ml of air removed per protocol. Site asymptomatic. Nurse to continue to monitor.
--- NOTE | 2020-02-22 18:17 | PM.PN ---
Subjective Subjective: Interval history: She denies any new symptoms today. No chest pain. No shortness of breath at rest. Had a bowel movement yesterday. No abdominal pain or discomfort. Vitals/I&O/Wt Last Vital Signs Temp 97.6 F 02/22/20 08:00 Pulse 60 02/22/20 17:00 Resp 15 02/22/20 17:00 BP 134/25 02/22/20 17:00 Pulse Ox 94 02/22/20 09:15 02/22/20 02/22/20 02/22/20 06:59 14:59 22:59 Intake Total 1557.851 / 1557.851 Output Total 700 / 1300 Balance -700 / -1060 1557.851 / 1557.851 Physical Exam Const: COMMON NORMALS: no acute distress and patient oriented x3 OTHER: Awake, alert, sitting in bed. Comfortable, pleasant, conversant. HENMT: COMMON NORMALS: oropharynx normal Neck/C-Spine: COMMON NORMALS: no JVD Resp: COMMON NORMALS: normal respiratory effort and clear to auscultation bilaterally AUSCULTATION: clear to auscultation bilaterally Cardio: COMMON NORMALS: no JVD, regular rhythm, S1 normal heart sound present and S2 normal heart sound present RHYTHM: regular rhythm HEART SOUNDS: S1 normal heart sound present, S2 normal heart sound present and Murmur heart sound present systolic GI: COMMON NORMALS: Soft to palpation and non-tender INSPECTION: No abdominal distension AUSCULTATION: Yes Hypoactive bowel sounds present PALPATION: Yes Soft to palpation Extremity: COMMON NORMALS: no joint enlargement and no pedal edema GENERAL: Yes edema (trace) Neuro: COMMON NORMALS: patient oriented x3 and moves all extremities Skin: COMMON NORMALS: no rashes or lesions noted GENERAL SKIN EXAM: no rashes or lesions noted Data : 02/22/20 04:30 02/22/20 04:30 A&P Assessment and plan (1) Aortic stenosis: Status post coronary angiography today without finding of significant coronary disease needing intervention. Discussed with cardiology. Reassess condition, renal function in the morning. Cardiology setting up for TAVR. Her dyspnea on exertion may be secondary to aortic stenosis. Discussed with cardiology. She is undergoing additional work-up with consideration of aortic valve replacement. After optimization of volume status population health coach is planning for additional assessment with coronary angiogram. Patient has some history of GI bleeding in 2019, although has been on Eliquis, and hemoglobin appears to be stable. Status: Acute Qualifiers: Cardiac valve disease etiology: nonrheumatic Qualified Code(s): I35.0 - Nonrheumatic aortic (valve) stenosis (2) Vomiting: Resolved. Tolerating p.o. intake today. Had a bowel movement yesterday. Negative COVID-19 rapid antigen. She does have history of gastritis despite being on PPI noted on EGD in January 2019. At that same time also had colonoscopy with polyp removal. Suspect her episodes of vomiting may be related to combination of possibly gastritis, also has been having obstipation, reports has not had a bowel movement in close to a week. Was given an enema, and appears may be about to have a bowel movement. Had a bowel movement after enema. PPI IV. Reglan as needed case not responsive to Zofran. Sucralfate. Abdomen is otherwise soft, nontender on examination with deep palpation. Status: Acute (3) Hemoptysis: Has had no recurrence. Reports some intermittent cough, says that has been having some blood mixed in with phlegm last time 3 days ago after prolonged cough episode. I am not sure whether this may be secondary to aortic stenosis which is a possibility. CT chest without any mass, with small to moderate right and small left pleural effusions. Slight hazy groundglass opacities noted. She has been afebrile, no chills, and is not short of breath. No headache. He is having some vomiting. Negative coronavirus antigen test. Noted cardiomegaly. Status: Acute (4) CHF (congestive heart failure): Cardiology is optimizing her volume status with diuresis prior to additional assessment by car angiography. Status: Acute Qualifiers: Heart failure chronicity: chronic Heart failure type: diastolic Qualified Code(s): I50.32 - Chronic diastolic (congestive) heart failure (5) Atrial fibrillation: Currently episodes of bradycardia down into high 30s. Noted 3.5-second pause this morning. Discussed with cardiology. Continue to monitor at this time. Electrical Manufacturing Technician will seek assessment at the time of TAVR. Does not appear to be symptomatic. Cardiology aware, monitoring for now. Beta-kar withheld. Change back to Eliquis in the morning. Status: Acute Qualifiers: Atrial fibrillation type: paroxysmal Qualified Code(s): I48.0 - Paroxysmal atrial fibrillation (6) Hypertension: At goal. Monitor. Status: Acute Qualifiers: Hypertension type: essential hypertension Qualified Code(s): I10 - Essential (primary) hypertension (7) History of GI bleed: Hemoglobin stable. History of GI bleed and had upper and lower endoscopy back in January 2019. Has been on Eliquis anticoagulation. Continue PPI. Gastritis was noted on the prior EGD. During colonoscopy had polypectomy. Status: Acute Additional A&P Information Hemorrhoids: Likely secondary to constipation. Will need to establish bowel regimen on discharge. Follow-up with PCP. Hypertension: Currently normotensive, A. fib without RVR, continue Lovenox in place of Eliquis. Metoprolol withheld. Full code DVT prophylaxis: On therapeutic anticoagulation Attestations Medical Necessity Statement*: Continue admission for assessment management of severe aortic stenosis, obstipation, arrangements for aortic valve replacement for severe symptomatic aortic valve stenosis. Coding Level of Care Code Acute Brazing Machine Operator Helper for Chg Fwd Exam Comprehensive Diagnoses Aortic stenosis I35.0 Cardiac valve disease etiology: nonrheumatic Vomiting R11.10 Hemoptysis R04.2 CHF (congestive heart failure) I50.32 Heart failure chronicity: chronic Heart failure type: diastolic Atrial fibrillation I48.0 Atrial fibrillation type: paroxysmal Hypertension I10 Hypertension type: essential hypertension History of GI bleed Z87.19
--- NOTE | 2020-02-22 19:01 | PC.NURSE ---
No further events during shift. Patient sat in chair for dinner, tolerated activity well. Sites asymptomatic. No further needs identified at this time.
--- NOTE | 2020-02-22 19:08 | PC.NURSE ---
Patient resting in bed. Patient reports feeling a little loopy . Fluids remain running as ordered. Noted patient heart rate dropping as low as 39 but not sustaining at this time, stays mostly in low to mid 50s. Patient denies pain. No distress observed. Post heart cath sites remain c,d,i. No s/s of bleeding or hematoma formation observed. Instructed patient on need for continued fluids and continuing plan of care. Patient verbalized complete understanding
[2020-02-23] VITALS (7 sets, daily range): BP systolic 111–134; BP diastolic 35–80; PULSE 44–68; RESP 12–17; TEMP 36.3–36.6; O2SAT 97–99
[2020-02-23] MEDS: sodium chlor 0.9% + KCl 40 mEq 40 MEQ/1,000 ML BAG 100 MEQ IV (05:02)
[2020-02-23 05:43] LABS: Basophils % 0.9 %; Eosinophils # 0.1 10^3/uL (0.0-0.8); Eosinophils % 2.6 %; Hematocrit 33.5 % (37.0-47.0); Hemoglobin 9.9 g/dL (11.5-15.3); Lymphocytes # 1.1 10^3/uL (0.8-4.8); Lymphocytes % 25.5 %; Mean Corpuscular HGB Conc 29.6 g/dL (30.0-36.0); Mean Corpuscular Volume 94.9 fL (81-99); Mean Platelet Volume 10.5 fL (7.4-10.4); Monocytes # 0.4 10^3/uL (0.2-0.9); Monocytes % 8.6 %; Neutrophils # 2.66 10^3/uL (1.8-7.7); Neutrophils % 62.2 %; Nucleated Red Blood Cells % 0 %; Platelet Count 224 10^3/cmm (130-400); Red Blood Count 3.53 10^6/uL (4.1-5.3); Red Cell Distribution Width 13.2 % (12.1-15.1); White Blood Count 4.3 10^3/uL (4.0-10.0)
[2020-02-23 06:23] LABS: Anion Gap 10.9 (5-19); Blood Urea Nitrogen 16 mg/dL (8-23); Calcium 8.8 mg/dL (8.5-10.5); Carbon Dioxide 28 mmol/L (22-29); Chloride 103 mmol/L (98-107); Creatinine Clr Calc Pharmacy 50.4481; Glucose 88 mg/dL (65-115); Osmolality Calculated 285 mOsm/kg (285-295); Potassium 4.9 mmol/L (3.5-5.1); Sodium 137 mmol/L (136-145)
--- NOTE | 2020-02-23 08:25 | DCPLANNER ---
Pg 2 of IM updated and reviewed with pt. No questions, copy provided.
[2020-02-23] MEDS: levothyroxine 125 mcg Tablet PO (09:28)
[2020-02-23] MEDS: gabapentin 400 mg Capsule PO ×3 (09:28→20:50)
[2020-02-23] MEDS: cyanocobalamin 1,000 mcg Tablet 1000 MCG PO (09:28)
[2020-02-23] MEDS: pantoprazole DR 40 mg Tablet PO (09:29)
[2020-02-23] MEDS: potassium chloride ER 10 mEq Tablet PO (09:29)
[2020-02-23] MEDS: losartan 50 mg Tablet PO (09:29)
--- NOTE | 2020-02-23 12:38 | P.PN_ITS ---
Subjective Subjective: Interval history: She is status post coronary angiogram yesterday. She did well yesterday and today. Denies having any chest pain or shortness of breath and is lying comfortably in bed. Complaining of some nausea right now but denies any episodes of vomiting. Medications: Reviewed: Yes Medication Review Details: Current Medications Amlodipine Besylate (Norvasc) 10 mg PO DAILY [facility] Last Admin: 02/21/20 08:57 Dose: 10 mg Documented by: Apixaban (Eliquis) 5 mg PO BID [facility] Last Admin: 02/20/20 08:43 Dose: 5 mg Documented by: Atorvastatin Calcium (Lipitor) 20 mg PO DAILY [facility] Last Admin: 02/21/20 08:57 Dose: 20 mg Documented by: Cyanocobalamin (Vitamin B-12) 1,000 mcg PO DAILY [facility] Last Admin: 02/23/20 09:28 Dose: 1,000 mcg Documented by: Diphenhydramine HCl (Benadryl) 12.5 mg IVP Q8H PRN PRN Reason: Nausea and Vomiting, Severe Last Admin: 02/21/20 18:29 Dose: 12.5 mg Documented by: Furosemide (Lasix) 40 mg PO DAILY@0800 [facility] Gabapentin (Neurontin) 400 mg PO TID [facility] Last Admin: 02/23/20 09:28 Dose: 400 mg Documented by: Hydroxyzine Pamoate (Vistaril) 25 mg PO TID PRN PRN Reason: Rash Potassium Chloride/Sodium Chloride (Sodium Chlor 0.9% + Kcl 40 Meq) 40 meq in 1,000 mls @ 100 mls/hr IV .Q10H [facility] Last Admin: 02/23/20 05:02 Dose: 100 mls/hr Documented by: Levothyroxine Sodium (Synthroid) 112 mcg PO DAILY [facility] Last Admin: 02/21/20 08:56 Dose: 112 mcg Documented by: Levothyroxine Sodium (Synthroid) 125 mcg PO DAILY [facility] Last Admin: 02/23/20 09:28 Dose: 125 mcg Documented by: Losartan Potassium (Cozaar) 50 mg PO DAILY [facility] Last Admin: 02/23/20 09:29 Dose: 50 mg Documented by: Metoclopramide HCl (Reglan) 5 mg IVP Q8H PRN PRN Reason: NAUSEA AND VOMITING Last Admin: 02/21/20 18:25 Dose: 5 mg Documented by: Ondansetron HCl (Zofran) 4 mg IVP Q6H PRN PRN Reason: NAUSEA AND VOMITING Last Admin: 02/21/20 14:32 Dose: 4 mg Documented by: Pantoprazole Sodium (Protonix) 40 mg IVP Q12H [facility] Pantoprazole Sodium (Protonix) 40 mg PO DAILY [facility] Last Admin: 02/23/20 09:29 Dose: 40 mg Documented by: Polyethylene Glycol (Miralax) 17 gm PO BID [facility] Last Admin: 02/21/20 17:12 Dose: 17 gm Documented by: Polyethylene Glycol (Miralax) 17 gm PO DAILY [facility] Last Admin: 02/23/20 09:30 Dose: Not Given Documented by: Potassium Chloride (Klor-Con 10) 20 meq PO DAILY [facility] Ropinirole HCl (Requip) 5 mg PO TID [facility] Last Admin: 02/21/20 20:29 Dose: 5 mg Documented by: Sertraline HCl (Zoloft) 150 mg PO DAILY [facility] Last Admin: 02/21/20 08:56 Dose: 150 mg Documented by: Sucralfate (Carafate Oral Liq) 1 gm PO AC&BEDTIME [facility] Last Admin: 02/21/20 20:29 Dose: 1 gm Documented by: Vitamin E (Vitamin E) 400 unit PO DAILY [facility] Last Admin: 02/23/20 09:30 Dose: Not Given Documented by: Vitals/I&O/Wt Last Vital Signs Temp 97.8 F 02/23/20 11:40 Pulse 55 L 02/23/20 11:40 Resp 12 02/23/20 11:40 BP 111/49 02/23/20 11:40 Pulse Ox 97 02/23/20 11:40 02/22/20 02/23/20 02/23/20 22:59 06:59 14:59 Intake Total 1240 / 2910.351 1125 / 4035.351 360 / 360 Output Total 400 / 400 Balance 840 / 2510.351 1125 / 3635.351 360 / 360 Physical Exam Narrative: EXAM NARRATIVE: GENERAL: Obese lady lying in bed in no acute distress HEENT: Extraocular movement intact. Pupils equal round reactive to light. No pallor or icterus. NECK: central trachea, no JVD. CARDIOVASCULAR SYSTEM: S1-S2 irregular. Grade IV/ crescendo systolic murmur in aortic area with radiation to carotids RESPIRATORY SYSTEM: Chest clear to auscultation. No wheezes rhonchi or rubs heard. No use of accessory muscles. ABDOMEN: Soft, nontender and nondistended. Normal bowel sounds present. EXTREMITIES: No cyanosis or clubbing. No edema. Right femoral access site without any significant bruising or hematoma. 2+ peripheral pulses. MARKING CLERK: Patient is alert oriented ?3. No focal neurological deficits. SKIN: Normal turgor and temperature. No breakdown, rash or nail changes noted. PSYCH: Normal insight and judgment. Data : 02/23/20 05:06 02/23/20 05:06 Attestation for Other Data: I personally reviewed and interpreted the following: Other data: Coronary angiogram 22 February 2020 Diagnostic Findings * The left main is extremely short vessel , which bifurcates at the ostium to LAD and left circumflex artery. * The left anterior descending artery is a medium caliber vessel which appears to wrap around the LV apex minimally. Some intimal irregularities were noted in the proximal to mid segment. No significant stenotic lesions were noted.\. * The left circumflex artery is a relatively large caliber dominant vessel with no significant stenotic lesions. * The right coronary artery is a relatively small caliber nondominant vessel with no significant stenotic lesions. Conclusions 1. This is an 80-year-old white female with a history of hypertension, dyslipidemia, chronic atrial fibrillation, presented with recurrent episodes of diastolic heart failure. She was found to have possibly severe low gradient aortic valve stenosis by echocardiogram. Her left ventricular ejection fraction was around 50%. For further evaluation of her hemodynamics, a right and left heart catheterization with right and left coronary angiogram was recommended. Patient underwent the procedure this morning. The findings are as follows. 2. Patient has left dominant coronary circulation. The left main is practically nonexistent. No significant obstruction was noted in the LAD, circumflex and right coronary arteries. The right heart catheterization revealed a PA pressure of 31/14 with a mean of 20. The RV pressure was 38 and the right atrial pressure was 2. Pulmonary capillary wedge pressure was 10. Cardiac output was 3.0 with an index of 2.0 by Ivette's method. The LVEDP was 24 mmHg. The mean gradient across the aortic valve is 40 with a peak to peak gradient of 46 mmHg.. Recommendations * Continue current medical management and risk factor modification. Diagnostic RX Recommendation: other cardiac therapy w/o CABG/PCI LV EDP: 24 mmHg Left Ventriculography Findings: * The LV gram was not performed because of the patient's history of chronic kidney disease. Transthoracic echocardiogram 20 February 2020 CONCLUSIONS LV systolic function is normal with EF 50%. Diastolic function cannot be assessed because of atrial fibrillation. Severe aortic stenosis is present with aortic valve area of 0.65 cm squared and mean gradient across the valve of 35 mmHg. Moderate aortic regurgitation and moderate mitral regurgitation are noted. Compared to prior study from 01/31/2020, no significant changes are noted. Transthoracic echocardiogram 31 January 2020 CONCLUSIONS 1. Normal left ventricular size and systolic function, EF 50 %. Mild diffuse hypokinesia of the septum and the anteroseptal segments. 2. Daljgwcp-[id number] aortic valve regurgitation. 3. Possibly severe low gradient aortic valve stenosis with a peak velocity of 3.53 m/s. Peak gradient of 50 with a mean gradient of 29 mmHg. Calculated aortic valve area of 0.79 cm 2. 4. Moderate to severe mitral valve regurgitation. 5. Biatrial enlargement. 6. Trace to mild tricuspid valve regurgitation. 7. Plaque seen in the ascending aorta. Compared to the study from 01/26/2019, there is some worsening of the aortic valve stenosis and a decline in the LV systolic function. A&P Assessment and plan (1) Aortic stenosis: Severe aortic stenosis with peak peak to peak gradient of 46 mmHg and mean gradient across aortic valve of 40 mmHg. -She is going to be referred to Dr. Diego in [place] for transcatheter aortic valve replacement. -Normal coronary on cardiac cath. Status: Acute Qualifiers: Cardiac valve disease etiology: nonrheumatic Qualified Code(s): I35.0 - Nonrheumatic aortic (valve) stenosis (2) CHF (congestive heart failure): Appears fairly compensated today. -Start on Lasix 40 mg and potassium 20 mg tomorrow. Status: Acute Qualifiers: Heart failure type: diastolic Heart failure chronicity: chronic Qualified Code(s): I50.32 - Chronic diastolic (congestive) heart failure (3) Atrial fibrillation: Not on AV ruth blockers. Start on Eliquis 5 mg twice a day. -Patient has been running slow. -Avoid any AV ruth blockers on discharge. Status: Acute Qualifiers: Atrial fibrillation type: paroxysmal Qualified Code(s): I48.0 - Paroxysmal atrial fibrillation (4) Hypertension: Continue with losartan and add amlodipine 5 mg daily. -Blood pressure and heart rate log and further changes based on the log. Status: Acute Qualifiers: Hypertension type: essential hypertension Qualified Code(s): I10 - Essential (primary) hypertension (5) Hyperlipidemia: Status: Acute Qualifiers: Hyperlipidemia type: mixed hyperlipidemia Qualified Code(s): E78.2 - Mixed hyperlipidemia Additional A&P Information Moderate to severe mitral valve regurgitation Moderate to severe AI Nausea Constipation: Resolved Hypokalemia: Resolved Anemia Attestations Medical Necessity Statement*: Patient seems stable to be discharged home. Coding Level of Care Code Acute Teacher Aide for [facility] Fwd Diagnoses Aortic stenosis I35.0 Cardiac valve disease etiology: nonrheumatic CHF (congestive heart failure) I50.32 Heart failure type: diastolic Heart failure chronicity: chronic Atrial fibrillation I48.0 Atrial fibrillation type: paroxysmal Hypertension I10 Hypertension type: essential hypertension Hyperlipidemia E78.2 Hyperlipidemia type: mixed hyperlipidemia
[2020-02-23] MEDS: ondansetron 2 mg/ML SDV 2 mL 4 MG IVP (13:23)
[2020-02-23] MEDS: pantoprazole 40 mg SDV IVP (15:44)
[2020-02-23] MEDS: sucralfate 1 gm/10 mL Oral Liq UDC PO ×2 (17:08→20:51)
--- NOTE | 2020-02-23 17:42 | P.PN_ITS ---
Subjective Subjective: Interval history: States she has not been sleeping well at night. Today has not been feeling well. Having some nausea again. Subsequently nausea is better, abdominal discomfort resolved. However, she is tearful. He is not sure why but feels she has not been doing very well. Feeling depressed. Denies any thoughts of self-harm. States that she would seek help in case these ever occurred. Offered her to speak with our psychiatrist, however, she declines. She says that her depression is managed by her primary provider. She agrees to increasing dose of sertraline. States that earlier today had some confusion on waking up. Reports that about 10 years ago she got very confused at which time she had to be pursued by police and apprehended. Reports that she lives alone. Vitals/I&O/Wt Last Vital Signs Temp 97.9 F 02/23/20 16:00 Pulse 51 L 02/23/20 16:00 Resp 12 02/23/20 16:00 BP 134/48 02/23/20 16:00 Pulse Ox 99 02/23/20 16:00 02/23/20 02/23/20 02/23/20 06:59 14:59 22:59 Intake Total 1125 / 4035.351 600 / 600 1000 / 1600 Balance 1125 / 3635.351 600 / 600 1000 / 1600 Physical Exam Const: COMMON NORMALS: no acute distress and patient oriented x3 OTHER: Awake, alert, sitting in bed. Comfortable, pleasant, conversant. HENMT: COMMON NORMALS: oropharynx normal Neck/C-Spine: COMMON NORMALS: no JVD Resp: COMMON NORMALS: normal respiratory effort and clear to auscultation bilaterally AUSCULTATION: clear to auscultation bilaterally Cardio: COMMON NORMALS: no JVD, regular rhythm, S1 normal heart sound present and S2 normal heart sound present RHYTHM: regular rhythm HEART SOUNDS: S1 normal heart sound present, S2 normal heart sound present and Murmur heart sound present systolic GI: COMMON NORMALS: Soft to palpation and non-tender INSPECTION: No abdo jah distension AUSCULTATION: Yes Hypoactive bowel sounds present PALPATION: Yes Soft to palpation Extremity: COMMON NORMALS: no joint enlargement and no pedal edema GENERAL: Yes edema (trace) Neuro: COMMON NORMALS: patient oriented x3 and moves all extremities Skin: COMMON NORMALS: no rashes or lesions noted GENERAL SKIN EXAM: no rashes or lesions noted Data : 02/23/20 05:06 02/23/20 05:06 A&P Assessment and plan (1) Aortic stenosis: She denies any chest pain. She has been doing well on room air. No syncopal or presyncopal episode. Discharge was being planned for today, however, she states has had some episode of confusion today, and also he has generally feeling depressed, tearful, and somewhat unwell. Does not feel safe returning home currently. Discussed with her we will monitor overnight to see that she has no further episodes of confusion with plan to discharge tomorrow with follow-up with primary care provider regarding depression. Status post coronary angiography today without finding of significant coronary disease needing intervention. Discussed with cardiology. Reassess condition, renal function in the morning. Cardiology setting up for TAVR. Her dyspnea on exertion may be secondary to aortic stenosis. Discussed with cardiology. She is undergoing additional work-up with consideration of aortic valve replacement. 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 Patient has some history of GI bleeding in 2019, although has been on Eliquis, and hemoglobin appears to be stable. Status: Acute Qualifiers: Cardiac valve disease etiology: nonrheumatic Qualified Code(s): I35.0 - Nonrheumatic aortic (valve) stenosis (2) Vomiting: Today had more nausea, abdominal discomfort. I see that her PPI was switched over to once daily. Sucralfate for some reason was held and not restarted. Restart sucralfate. Change PPI to twice daily, for now IV. Symptoms improved this evening. If she does well, tentative plan for discharge tomorrow with twice daily PPI and sucralfate. Continue follow-up with PCP, if no improvement consider referral for additional assessment with GI. Negative COVID-19 rapid antigen. She does have history of gastritis despite being on PPI noted on EGD in January 2019. At that same time also had colonoscopy with polyp removal. Status: Acute (3) Hemoptysis: Has had no recurrence. Reports some intermittent cough, says that has been having some blood mixed in with phlegm last time 3 days ago after prolonged cough episode. I am not sure whether this may be secondary to aortic stenosis which is a possibility. CT chest without any mass, with small to moderate right and small left pleural effusions. Slight hazy groundglass opacities noted. She has been afebrile, no chills, and is not short of breath. No headache. He is having some vomiting. Negative coronavirus antigen test. Noted cardiomegaly. Status: Acute (4) CHF (congestive heart failure): Cardiology is optimizing her volume status with diuresis prior to additional assessment by car angiography. Status: Acute Qualifiers: Heart failure type: diastolic Heart failure chronicity: chronic Qualified Code(s): I50.32 - Chronic diastolic (congestive) heart failure (5) Atrial fibrillation: Currently episodes of bradycardia down into high 30s. Noted 3.5-second pause this morning. Discussed with cardiology. Continue to monitor at this time. Case Coordinator will seek assessment at the time of TAVR. Does not appear to be symptomatic. Cardiology aware, monitoring for now. Beta-kar withheld. Change back to Eliquis in the morning. Status: Acute Qualifiers: Atrial fibrillation type: paroxysmal Qualified Code(s): I48.0 - Paroxysmal atrial fibrillation (6) Hypertension: At goal. Monitor. Status: Acute Qualifiers: Hypertension type: essential hypertension Qualified Code(s): I10 - Essential (primary) hypertension (7) History of GI bleed: Hemoglobin stable. History of GI bleed and had upper and lower endoscopy back in January 2019. Has been on Eliquis anticoagulation. Continue PPI. Gastritis was noted on the prior EGD. During colonoscopy had polypectomy. Status: Acute Additional A&P Information Hemorrhoids: Avoid constipation. Follow-up with PCP. Hypertension: At goal. A. fib without RVR, Eliquis. Metoprolol withheld due to bradycardia. Full code DVT prophylaxis: On therapeutic anticoagulation Attestations Medical Necessity Statement*: Continue admission for additional monitoring due to episode of confusion, discharge arrangements, optimization of treatment of severe aortic stenosis, gastritis, congestive heart failure, and the setting of atrial fibrillation with bradycardia, on anticoagulation, with recent history of hemoptysis, history of GI bleeding. 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
[2020-02-23] MEDS: ropinirole 2 mg Tablet 5 MG PO (20:50)
[2020-02-23] MEDS: atorvastatin 40 mg Tablet 20 MG PO (20:51)
[2020-02-23] MEDS: hyDROXYzine 25 mg Capsule PO (20:54)
[2020-02-23] MEDS: zolpidem 5 mg Tablet PO (23:36)
--- NOTE | 2020-02-23 23:38 | PC.NURSE ---
Patient c/o not sleeping for 3 days, feeling, nervous, anxious and nauseous. Informed Dr Wiggins and order was received for Ambien 5mg po which was administered as ordered. Instructed patient on new medication. Patient verbalized complete understanding. Assisted patient to bed. No other distress observed.
[2020-02-24 03:28] VITALS: BP 134/61; PULSE 60; RESP 18; O2SAT 94
[2020-02-24] MEDS: pantoprazole 40 mg SDV IVP (03:29)
[2020-02-24 08:00] VITALS: BP 138/59; PULSE 48; RESP 15; TEMP 35.9; O2SAT 97
[2020-02-24] MEDS: sucralfate 1 gm/10 mL Oral Liq UDC PO ×2 (08:12→11:15)
[2020-02-24 08:14] VITALS: BP 138/59
[2020-02-24] MEDS: ropinirole 2 mg Tablet 5 MG PO (08:14)
[2020-02-24] MEDS: cyanocobalamin 1,000 mcg Tablet 1000 MCG PO (08:14)
[2020-02-24] MEDS: gabapentin 400 mg Capsule PO (08:14)
[2020-02-24] MEDS: losartan 50 mg Tablet PO (08:14)
[2020-02-24] MEDS: levothyroxine 125 mcg Tablet PO (08:15)
[2020-02-24] MEDS: FUROsemide 40 mg Tablet PO (08:15)
[2020-02-24] MEDS: levothyroxine 112 mcg Tablet PO (08:15)
[2020-02-24] MEDS: sertraline 50 mg Tablet 75 MG PO (08:16)
[2020-02-24] MEDS: sertraline 100 mg Tablet PO (08:17)
[2020-02-24] MEDS: potassium chloride ER 10 mEq Tablet 20 MEQ PO (08:17)
[2020-02-24 09:09] LABS: Thyroid Stimulating Hormone 12.09 uIU/mL (0.27-4.20)
--- NOTE | 2020-02-24 11:30 | PM.PN ---
Subjective Subjective: Interval history: She is status post coronary angiogram. Denies having any chest pain or shortness of breath and is lying comfortably in bed. Medications: Reviewed: Yes Medication Review Details: Current Medications Atorvastatin Calcium (Lipitor) 20 mg PO BEDTIME [facility] Last Admin: 02/23/20 20:51 Dose: 20 mg Documented by: Cyanocobalamin (Vitamin B-12) 1,000 mcg PO DAILY [facility] Last Admin: 02/24/20 08:14 Dose: 1,000 mcg Documented by: Diphenhydramine HCl (Benadryl) 12.5 mg IVP Q8H PRN PRN Reason: Nausea and Vomiting, Severe Last Admin: 02/21/20 18:29 Dose: 12.5 mg Documented by: Furosemide (Lasix) 40 mg PO DAILY@0800 [facility] Last Admin: 02/24/20 08:15 Dose: 40 mg Documented by: Gabapentin (Neurontin) 400 mg PO TID [facility] Last Admin: 02/24/20 08:14 Dose: 400 mg Documented by: Hydroxyzine Pamoate (Vistaril) 25 mg PO TID PRN PRN Reason: Rash Last Admin: 02/23/20 20:54 Dose: 25 mg Documented by: Levothyroxine Sodium (Synthroid) 112 mcg PO DAILY [facility] Last Admin: 02/24/20 08:15 Dose: 112 mcg Documented by: Levothyroxine Sodium (Synthroid) 125 mcg PO DAILY [facility] Last Admin: 02/24/20 08:15 Dose: 125 mcg Documented by: Losartan Potassium (Cozaar) 50 mg PO DAILY [facility] Last Admin: 02/24/20 08:14 Dose: 50 mg Documented by: Metoclopramide HCl (Reglan) 5 mg IVP Q8H PRN PRN Reason: NAUSEA AND VOMITING Last Admin: 02/21/20 18:25 Dose: 5 mg Documented by: Ondansetron HCl (Zofran) 4 mg IVP Q6H PRN PRN Reason: NAUSEA AND VOMITING Last Admin: 02/21/20 14:32 Dose: 4 mg Documented by: Pantoprazole Sodium (Protonix) 40 mg IVP Q12H [facility] Last Admin: 02/24/20 03:29 Dose: 40 mg Documented by: Potassium Chloride (Klor-Con 10) 20 meq PO DAILY [facility] Last Admin: 10/25/20 08:17 Dose: 20 meq Documented by: Ropinirole HCl (Requip) 5 mg PO TID [facility] Last Admin: 02/24/20 08:14 Dose: 5 mg Documented by: Sertraline HCl (Zoloft) 100 mg PO DAILY [facility] Last Admin: 02/24/20 08:17 Dose: 100 mg Documented by: Sertraline HCl (Zoloft) 75 mg PO DAILY [facility] Last Admin: 02/24/20 08:16 Dose: 75 mg Documented by: Sucralfate (Carafate Oral Liq) 1 gm PO AC&BEDTIME [facility] Last Admin: 02/24/20 11:15 Dose: 1 gm Documented by: Vitamin E (Vitamin E) 400 unit PO DAILY [facility] Last Admin: 02/24/20 10:25 Dose: Not Given Documented by: Zolpidem Tartrate (Ambien) 5 mg PO BEDTIME PRN PRN Reason: AGITATION Last Admin: 02/23/20 23:36 Dose: 5 mg Documented by: Vitals/I&O/Wt Last Vital Signs Temp 96.6 F L 02/24/20 08:00 Pulse 48 L 02/24/20 08:00 Resp 15 02/24/20 08:00 BP 138/59 02/24/20 08:14 Pulse Ox 97 02/24/20 08:00 02/23/20 02/24/20 02/24/20 22:59 06:59 14:59 Intake Total 1360 / 1960 460 / 460 Balance 1360 / 1960 460 / 460 Physical Exam Narrative: EXAM NARRATIVE: GENERAL: Obese lady lying in bed in no acute distress HEENT: Extraocular movement intact. Pupils equal round reactive to light. No pallor or icterus. NECK: central trachea, no JVD. CARDIOVASCULAR SYSTEM: S1-S2 irregular. Grade IV/ crescendo systolic murmur in aortic area with radiation to carotids RESPIRATORY SYSTEM: Chest clear to auscultation. No wheezes rhonchi or rubs heard. No use of accessory muscles. ABDOMEN: Soft, nontender and nondistended. Normal bowel sounds present. EXTREMITIES: No cyanosis or clubbing. No edema. Right femoral access site without any significant bruising or hematoma. 2+ peripheral pulses. 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 No focal neurological deficits. SKIN: Normal turgor and temperature. No breakdown, rash or nail changes noted. PSYCH: Normal insight and judgment. Data : 02/23/20 05:06 02/23/20 05:06 A&P Assessment and plan (1) Aortic stenosis: Severe aortic stenosis with peak to peak gradient of 46 mmHg and mean gradient across aortic valve of 40 mmHg. -She is going to be referred to Dr. Diego in [place] for transcatheter aortic valve replacement. -Normal coronary on cardiac cath. I spoke to her niece Anushka as well as the patient and explained to them about transcatheter aortic valve replacement. -Follow-up in 1 week with BMP and site check. Status: Acute Qualifiers: Cardiac valve disease etiology: nonrheumatic Qualified Code(s): I35.0 - Nonrheumatic aortic (valve) stenosis (2) CHF (congestive heart failure): Appears fairly compensated today. -Start on Lasix 40 mg and potassium 20 mg tomorrow. Status: Acute Qualifiers: Heart failure type: diastolic Heart failure chronicity: chronic Qualified Code(s): I50.32 - Chronic diastolic (congestive) heart failure (3) Atrial fibrillation: Not on AV ruth blockers. Start on Eliquis 5 mg twice a day. -Patient has been running slow. No indication for permanent pacemaker placement presently. -Avoid any AV ruth blockers on discharge. Status: Acute Qualifiers: Atrial fibrillation type: paroxysmal Qualified Code(s): I48.0 - Paroxysmal atrial fibrillation (4) Hypertension: Continue with losartan and add amlodipine 5 mg daily. -Blood pressure and heart rate log and further changes based on the log. Status: Acute Qualifiers: Hypertension type: essential hypertension Qualified Code(s): I10 - Essential (primary) hypertension (5) Hyperlipidemia: Status: Acute Qualifiers: Hyperlipidemia type: mixed hyperlipidemia Qualified Code(s): E78.2 - Mixed hyperlipidemia Additional A&P Information Moderate to severe mitral valve regurgitation Moderate to severe AI Nausea Constipation: Resolved Hypokalemia: Resolved Anemia Hypothyroidism Attestations Medical Necessity Statement*: Stable to be discharged home. Coding Level of Care Code Acute Superintendent Concrete Mixing Plant for g Fwd Diagnoses Aortic stenosis I35.0 Cardiac valve disease etiology: nonrheumatic CHF (congestive heart failure) I50.32 Heart failure type: diastolic Heart failure chronicity: chronic Atrial fibrillation I48.0 Atrial fibrillation type: paroxysmal Hypertension I10 Hypertension type: essential hypertension Hyperlipidemia E78.2 Hyperlipidemia type: mixed hyperlipidemia
[2020-02-24 11:58] VITALS: BP 152/55; PULSE 55; RESP 18; TEMP 35.5; O2SAT 93
[2020-02-24] MEDS: apixaban 5 mg Tablet PO (12:13)
[2020-02-24 12:16] VITALS: PULSE 54; O2SAT 98
--- NOTE | 2020-02-24 12:51 | PM.DCS ---
Discharge Providers Date of Admission: 02/20/20 14:54 Date of Discharge: February 24, 2020 Attending Provider at Admission: Hiro Wiggins MD Attending Provider at Discharge: Mckinley Olson Primary Care Provider: SARIKA DIANA Diagnoses at Discharge Discharge Diagnosis (1) Aortic stenosis: Status: Acute Qualifiers: Cardiac valve disease etiology: nonrheumatic Qualified Code(s): I35.0 - Nonrheumatic aortic (valve) stenosis (2) CHF (congestive heart failure): Status: Acute Qualifiers: Heart failure type: diastolic Heart failure chronicity: chronic Qualified Code(s): I50.32 - Chronic diastolic (congestive) heart failure (3) Atrial fibrillation: Status: Acute Qualifiers: Atrial fibrillation type: paroxysmal Qualified Code(s): I48.0 - Paroxysmal atrial fibrillation (4) Hypertension: Status: Acute Qualifiers: Hypertension type: essential hypertension Qualified Code(s): I10 - Essential (primary) hypertension (5) Hyperlipidemia: Status: Acute Qualifiers: Hyperlipidemia type: mixed hyperlipidemia Qualified Code(s): E78.2 - Mixed hyperlipidemia (6) Gastritis: Status: Acute (7) Hypothyroidism: Status: Acute Reason for Visit Reason for Visit: heavy chest sent from dr keenan' Hospital Course Discharge Summary: Pleasant 80-year-old lady with history of aortic stenosis, A. fib on chronic anticoagulation, CHF with preserved ejection fraction, COPD, HTN, HLD, hypothyroidism, depression was admitted for assessment management after experiencing worsening shortness of breath. Arrangements have been taking place for evaluation in [place] for aortic valve replacement. On admission also noted episodes of diarrhea 2 days prior. While in the hospital was assessed by cardiology. Volume status was optimized, and underwent additional assessment by left and right heart cath. No significant coronary disease was found. She has had no episodes of chest pain. No syncope. Persistent dyspnea on exertion with easy fatigability. In the hospital had constipation which subsequently resolved, then having few episodes of loose stools. She does have history of gastritis and colonic polyp removal seen on EGD back in January. Gastritis was in spite of taking PPI at the time. Given some episodes of nausea, vomiting, was also in addition to PPI started on sucralfate. She is on anticoagulation due to atrial fibrillation. She does report having some episodes of blood mixed in with sputum several days prior to admission. This was assessed by CT chest. Small to moderate right and small left pleural effusion were noted. Slight hazy groundglass opacities in both lungs with consideration of pneumonia, although has had no cough. This may be possibly some microaspiration/pneumonitis after vomiting. Was tested by rapid COVID-19 antigen which was negative. While in the hospital also noted worsening depression. We had a long discussion regarding contributing factors, including her own health issues, but also has an ill sister, and recently had lost her other sister and son. She declined additional evaluation offered to her by psychiatrist in the hospital. But agreed to increase sertraline dose to 175 and follow-up with primary care provider. She denies any suicidal ideation or thoughts of self-harm, and says that she would seek help in case these have occurred. With noted bradycardia in the hospital, also pauses, longest pause 3.5 seconds as discussed with cardiology consideration was made for additional evaluation by cardiology in [place] in case pacemaker was required, although this appears to also have a reversible cause. With worsening depression, noted constipation hospital was assessed by TSH which is elevated at 12.09. Will increase levothyroxine as discussed with her up to 137 mcg. She takes levothyroxine first thing in the morning before any food. Please follow-up with her to reassess all of these issues and help coordinate setting up aortic valve replacement, as well as follow-up of gastritis recurrence, possibly with endoscopic evaluation after cardiac evaluation and treatment are complete. Discussed her condition and findings as well as additional assessment and treatment plan with her niece Anushka. She states her and has not been sleeping well, she has been up at night, and sleeping during the day. We did discuss with the patient about sleep hygiene as he she has had issues sleeping in the hospital as well. Her knees will be checking up on the patient to make sure she is doing okay, as well that her father (patient's [id number]) lives with the patient and will be able to keep an eye on her as well. Physical Exam Const: COMMON NORMALS: no acute distress and patient oriented x3 OTHER: Awake, alert, sitting in bed. Yesterday was tearful and sad. Today says she is feeling little bit better. Denies any chest pain or pressure, no shortness of breath. No dizziness or presyncope. No abdominal pain. We will try to eat little bit of lunch. HENMT: COMMON NORMALS: oropharynx normal Neck/C-Spine: COMMON NORMALS: no JVD Resp: COMMON NORMALS: normal respiratory effort and clear to auscultation bilaterally AUSCULTATION: clear to auscultation bilaterally Cardio: COMMON NORMALS: no JVD, regular rhythm, S1 normal heart sound present and S2 normal heart sound present RHYTHM: regular rhythm HEART SOUNDS: S1 normal heart sound present, S2 normal heart sound present and Murmur heart sound present systolic GI: COMMON NORMALS: Soft to palpation and non-tender INSPECTION: No abdominal distension AUSCULTATION: Yes Hypoactive bowel sounds present PALPATION: Yes Soft to palpation Extremity: COMMON NORMALS: no joint enlargement and no pedal edema GENERAL: Yes edema (trace) Neuro: COMMON NORMALS: patient oriented x3 and moves all extremities Skin: COMMON NORMALS: no rashes or lesions noted GENERAL SKIN EXAM: no rashes or lesions noted Discharge Data Data Completed and Pending: Completed Studies During Hospitalization Category Date Time Status CT chest wo con 7 1250 Routine Cat Scan 02/20/20 11:16 Completed 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 Routin e Exams 02/22/20 06:59 Completed XR chest 1V koki ble [id number] Stat Exams 02/19/20 17:11 Completed CV echo complete* [id number] Routine Ultrasound 02/20/20 07:00 Completed Pending at discharge Category Date Time Status Clostridioides Di fficile PCR Routin e Lab 02/23/20 11:28 Uncollected Enteric Bacterial Panel by PCR Rout ine Lab 02/23/20 11:28 Uncollected Labs from last 24 hours 02/24/20 05:06 TSH 12.09 H Vitals: Last Vital Signs Temp 95.9 F L 02/24/20 11:58 Pulse 54 L 02/24/20 12:16 Resp 18 02/24/20 11:58 BP 152/55 02/24/20 11:58 Pulse Ox 98 02/24/20 12:16 Discharge Plan Discharge Patient Disposition: Home Condition: Stable Prescriptions: New ondansetron HCl [Zofran] 4 mg tablet 4 mg PO DAILY PRN (Reason: nausea and vomiting) 4 Days Qty: 12 RF: 0 sertraline 100 mg Tablet 175 mg PO DAILY Qty: 30 RF: 0 levothyroxine 137 mcg capsule 137 mcg PO DAILY Qty: 30 RF: 0 sucralfate 100 mg/mL Suspension 1 g PO AC&BEDTIME Qty: 420 RF: 0 Continued amlodipine 10 mg tablet 10 mg PO DAILY 30 Days Qty: 30 RF: 5 pantoprazole 40 mg tablet,delayed release (DR/EC) 40 mg PO BID RF: 0 pravastatin 20 mg tablet 20 mg PO DAILY RF: 0 polyethylene glycol 3350 17 gram powder in packet 17 gm PO DAILY RF: 0 Eliquis 5 mg tablet 5 mg PO BID RF: 0 potassium chloride [Klor-Con 10] 10 mEq tablet extended release 10 meq PO TID RF: 0 losartan 50 mg tablet 50 mg PO DAILY RF: 0 gabapentin 400 mg capsule 400 mg PO TID RF: 0 omeprazole 40 mg capsule,delayed release(DR/EC) 40 mg PO DAILY RF: 0 hydroxyzine HCl 25 mg tablet 25 mg PO TID PRN (Reason: Rash) RF: 0 Vitamin B-12 1 tab PO DAILY RF: 0 vitamin E 1 cap PO DAILY RF: 0 Changed furosemide 40 mg tablet 40 mg PO DAILY Qty: 0 RF: 0 Discontinued metoprolol tartrate 25 mg tablet 25 mg PO BID 30 Days Qty: 60 RF: 5 sertraline 100 mg tablet 150 mg PO DAILY RF: 0 levothyroxine 125 mcg tablet 125 mcg PO DAILY RF: 0 Discharge Orders: Discharge Order (Routine); Ordered 02/24/20 Ordered By: Mckinley Olson Referrals: [facility] [Provider Group] - 1 week (Depression) aKrthik Keenan MD [Physician] - 05/21/20 2:15 pm SARIKA DIANA FNP [Primary Care Provider] - 4-7 days (Hospital follow up) Discharge Diet: Advance as tolerated and Cardiac Discharge Activity: Increase activity as tolerated Activity Restrictions/Additional Instructions: Please monitor your heart rate 3 times daily due to noted slow heart rate in the hospital, write down values to bring to your appointment. If you experience any chest pain or pressure, any dizziness lightheadedness or like you are about to faint or do faint, please seek medical attention immediately. Do not take metoprolol. Please follow-up with your cardiology office. You should be contacted by cardiology office from [facility] with regards to further instructions to follow-up for arrangements for aortic valve replacement due to aortic stenosis. Please follow with your primary care doctor to follow up on the thyroid function after thyroid medicine dose was adjusted due to hypothyroidism. TSH was 12.09 Please be cautious to avoid any accidents that may cause bleeding as you are on a blood thinner. Please follow-up with your primary care doctor and discuss again regarding nausea, concern for recurrence of gastritis. Continue to take acid kar medication pantoprazole twice a day. Sucralfate with meals. Discussed with your primary care doctor if you have return of diarrhea. 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
[2020-02-24 14:29] VITALS: BP 127/57; PULSE 48; RESP 20; TEMP 36.2; O2SAT 96
== END 2020-02-24 16:55 | disposition home or self-care (01) | DRG 287 ==
LOC: ER 16:58 → CSU 21:45
PROVIDERS: Emergency Medicine; Internal Medicine Cardiovascular Disease; Admitting Provider Internal Medicine; PCP Nurse Practitioner Family; Visit Provider Internal Medicine
PROC: 4A023N8 Measurement of Cardiac Sampling and Pressure, Bilateral, Percutaneous Approach (ICD-10-PCS; principal; 2020-02-22 07:00)
DX: I35.0 Nonrheumatic aortic (valve) stenosis (principal); I50.32 Chronic diastolic (congestive) heart failure; I48.0 Paroxysmal atrial fibrillation; I11.0 Hypertensive heart disease with heart failure; E03.9 Hypothyroidism, unspecified; E78.5 Hyperlipidemia, unspecified; K29.70 Gastritis, unspecified, without bleeding; Z79.01 Long term (current) use of anticoagulants; J44.9 Chronic obstructive pulmonary disease, unspecified; F32.9 Major depressive disorder, single episode, unspecified; Z95.0 Presence of cardiac pacemaker; K21.9 Gastro-esophageal reflux disease without esophagitis; Z87.891 Personal history of nicotine dependence
CPT/HCPCS: 12345; 36415; 71045; 71250; 80048; 80053; 83605; 83735; 83880; 84443; 84484; 85025; 85610; 87426; 93005; 93306; 93460; 96372; 96375; 99283; C1751; C1769; C1887; C1894; C9113; G0378; J1200; J1644; J1650; J1940; J2250; J2405; J2765; J3010; J3490; J7030; Q0162; Q0163; Q9967

== ENCOUNTER 2020-04-03 16:13 | Emergency (ER) | payer MEDICARE, MEDICAID, SELFPAY ==
[2020-04-03] VITALS (7 sets, daily range): BP systolic 131–155; BP diastolic 62–84; PULSE 60–99; RESP 18–20; TEMP 36.5–36.9; O2SAT 93–99; BMI 31.4
--- NOTE | 2020-04-03 16:27 | XR_ITS ---
WS: [id number] Portable AP upright chest, 04/03/2020 Clinical Data: sob Comparison: Portable chest, 02/19/2020. Findings: The heart is enlarged and there is an artificial heart valve. The aortic arch shows calcifi cation and tortuosity. There are moderate bilateral pleural effusions. No pneumonia is seen. There ar e no nodules or masses. There are orthopedic anchors in the left humeral head. XR/XR chest 1V portable [id number] Impression: 1. Cardiomegaly and moderate bilateral pleural effusions 2. Atherosclerosis.
--- NOTE | 2020-04-03 16:27 | ECG_ITS ---
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 Measurements Intervals [place] Rate: 62 P: GA: QRS: -38 QRSD: 134 T: 51 QT: 469 QTc: 479 Interpretive Statements ATRIAL FIBRILLATION MARKED LEFT AXIS DEVIATION [QRS AXIS < -30] LEFT BUNDLE BRANCH BLOCK [120+ ms QRS DURATION, 80+ ms Q/S IN V1/V2, 85+ ms R IN I/aVL/V5/V6] Compared to ECG 02/19/2020 16:48:56 Left-axis deviation now present Left bundle-branch block now present ST (T wave) deviation no longer present Electronically Signed On 04-03-2020 18:29:[address] ADMINISTRATOR by Luis Reina M.D. [id number]
--- NOTE | 2020-04-03 16:27 | CTR_ITS ---
PROCEDURE INFORMATION: Exam: CT Angiography Chest With Contrast Exam date and time: 04/03/2020 5:15 PM Age: 80 years old Clinical indication: Shortness of breath; Prior surgery; Surgery date: <1 month; Surgery type: Valve replacement; Additional info: SOB TECHNIQUE: Imaging protocol: Computed tomographic angiography of the chest with intravenous contrast. 3D rendering (Not supervised by radiologist): MIP and/or 3D reconstructed images were created by the technologist. Radiation optimization: All CT scans at this facility use at least one of these dose optimization techniques: automated exposure control; mA and/or kV adjustment per patient size (includes targeted exams where dose is matched to clinical indication); or iterative reconstruction. Contrast material: OMNI 350; Contrast volume: 69 ml; Contrast route: INTRAVENOUS (IV); COMPARISON: CT chest [facility] [id number] 02/20/2020 11:49 AM RADIATION DOSE METRICS: Total DLP (mGy-cm): 615.51 FINDINGS: Pulmonary arteries: Pulmonary arteries are well opacified. Pulmonary arteries are normal in caliber. No filling defects are demonstrated. No evidence of pulmonary embolism. Aorta: The aorta is relatively unopacified. Prosthetic aortic valve noted. Atherosclerotic aortic calcification. No aortic aneurysm. Lungs: Mild prominence of the pulmonary interstitium, suggesting mild interstitial edema. Mild atelectasis at the lung bases. No consolidative infiltrates. Pleural space: Moderate-sized right pleural effusion. Small left pleural effusion. Heart: Moderate cardiomegaly is noted. No pericardial effusion. Mediastinal space: There is a small hiatal hernia present. Lymph nodes: Unremarkable. No enlarged lymph nodes. Liver: Calcified granulomas are seen in the liver. Spleen: Calcified granulomas are noted in the spleen. Bones/joints: Advanced degeneration of the thoracic spine. No acute osseous abnormality. Soft tissues: The soft tissues appear unremarkable. CT/CT angio chest PE protcl [id number] IMPRESSION: 1. No pulmonary embolism. 2. The aorta is relatively unopacified. Prosthetic aortic valve noted. Atherosclerotic aortic calcification. No aortic aneurysm. 3. Mild prominence of the pulmonary interstitium, suggesting mild interstitial edema. Mild atelectasis at the lung bases. No consolidative infiltrates. 4. Moderate cardiomegaly is noted. 5. Moderate-sized right pleural effusion. Small left pleural effusion. Radiation Dose CTDIVOL = (mGy): DLP = 615.51 (mGy-cm)
--- NOTE | 2020-04-03 16:43 | ED_ITS ---
Documented by User: Fantasma Wilson MD 04/03/20 17:46 HPI - SOB/Dyspnea General: Chief Complaint: Shortness of Breath/Dyspnea Stated Complaint: SOB/post surgery related/sent from radiology Time Seen by Provider: 04/03/20 16:33 Source: patient Mode of arrival: ambulatory Limitations: no limitations History of Present Illness: HPI Narrative: 80-year-old female who states she had a aortic valve replacement a week ago due to aortic stenosis. States that over the last 2 days she has been having exertional dyspnea. She states her doctor wanted her to be screened for a pulmonary embolism. She denies any fever. She denies any chest pain. States that her dyspnea is much worse with exertion is improved with rest. She is in no distress here and her pulse ox is normal on room air. Associated symptoms: Deny abdominal pain, chest pain, fever(s), nausea or vomiting Review of Systems Const: Denies: fever(s), chills, body aches or change in appetite Eyes: Denies: blurry vision or eye discomfort ENMT: Denies: throat pain or dental pain Card: Denies: chest pain Resp: Reports: dyspnea GI: Denies: abdominal pain, nausea, vomiting or diarrhea : Denies: dysuria Musc: Denies: neck pain or back pain Skin/Breast: Denies: rash Neuro: Denies: headache(s) Psych: Denies: depression Patricio/Lymph: Denies: easy bruising All/Imm: Denies: urticaria PFSH ED PFSH: Medical History (Updated 04/03/20 @ 20:48 by Bernice Kyle) Acute on chronic diastolic (congestive) heart failure Anemia Aortic stenosis Atrial fibrillation Benign essential hypertension with target blood pressure below 140/90 CHF (congestive heart failure) Chronic episodic atrial fibrillation COPD (chronic obstructive pulmonary disease) Dyslipidemia (high LDL; low HDL) GERD (gastroesophageal reflux disease) Hiatal hernia History of GI bleed Hyperlipidemia Hypertension Hypothyroidism Moderate to severe mitral regurgitation Severe aortic valve stenosis Surgical History (Updated 04/03/20 @ 15:14 by REYNALDO Hernandez) H/O rectal polypectomy H/O spinal fusion H/O: hysterectomy Hx of colonoscopy S/P TAVR (transcatheter aortic valve replacement) Family History Sister Cancer Denies family history of Anesthesia complication Bleeding disorder Social History Smoking and tobacco status: former smoker Alcohol intake: never Household members: family Marital status: / Physical Exam Const: COMMON NORMALS: no acute distress, patient oriented x3 and healthy appearing HENMT: COMMON NORMALS: normocephalic and atraumatic HEAD & SCALP: normocephalic and atraumatic Eye: COMMON NORMALS: Equal, round and reactive pupils present and EOMs intact bilaterally PUPIL: Yes Equal, round and reactive pupils present Neck/C-Spine: COMMON NORMALS: full ROM and supple Chest: COMMONS NORMALS: normal inspection of the chest and normal palpation of entire chest wall Resp: COMMON NORMALS: normal respiratory effort, No retractions, No use of accessory muscles and clear to auscultation bilaterally AUSCULTATION: clear to auscultation bilaterally Cardio: COMMON NORMALS: regular rate and No murmurs present (Cardio) RATE: regular rate RHYTHM: abnormal rhythm irregularly irregular GI: COMMON NORMALS: Normal to inspection, nondistended, normoactive bowel sounds present, Soft to palpation, non-tender and no masses PALPATION: Yes Soft to palpation Extremity: COMMON NORMALS: normal to inspection and full ROM Neuro: COMMON NORMALS: patient oriented x3, moves all extremities and no focal motor deficits Psych: COMMON NORMALS: mental status grossly normal, Normal thought process present and cooperative THOUGHT PROCESS: Normal thought process present Skin: COMMON NORMALS: no rashes or lesions noted and no wounds GENERAL SKIN EXAM: no rashes or lesions noted Course Vital Signs: Vital signs: Vital Signs Temperature 97.8 F 04/03/20 21:14 Pulse Rate 63 04/03/20 21:14 Respiratory Rate 18 04/03/20 21:14 Blood Pressure 155/84 04/03/20 20:43 Pulse Oximetry 94 04/03/20 21:14 MDM - SOB/Dyspnea MDM Narrative: Medical decision making narrative: Patient presents here with shortness of breath has been exertional. Patient CT showed a pleural effusion but no pulmonary embolism which she was mainly concerned about. Patient still pending her lab work and her care is turned over to Dr. Hensley to follow these labs. EKG here showed no acute findings. Lab Data: Labs: Lab Results 12/07/1904/03/20 04/03/20 Range/Units 17:55 17:55 17:55 WBC 5.0 (4.0-10.0) 10^3/ uL RBC 3.48 L (4.1-5.3) 10^6/u L Hgb 9.1 L (11.5-15.3) g/dL Hct 30.3 L (37.0-47.0) % MCV 87.1 (81-99) fL MCH 26.1 L (28.0-34.0) pg MCHC 30.0 (30.0-36.0) g/dL RDW 14.5 (12.1-15.1) % Plt Count 258 (130-400) 10^3/c mm MPV 9.3 (7.4-10.4) fL Neut % (Auto) 77.7 % Lymph % (Auto) 15.7 % Gibson % (Auto) 4.4 % Eos % (Auto) 1.4 % Baso % (Auto) 0.6 % Neut # (Auto) 3.87 (1.8-7.7) 10^3/u L Lymph # (Auto) 0.8 (0.8-4.8) 10^3/u L Gibson # (Auto) 0.2 (0.2-0.9) 10^3/u L Eos # (Auto) 0.1 (0.0-0.8) 10^3/u L Baso # (Auto) 0.0 (0.0-0.1) 10^3/u L Nucleated RBC % (a uto) 0 % Nucleated RBCs # 0.0 /100WBC PT 13.50 (12.1-14.9) SECO NDS INR 1.00 (0.8-1.2) Sodium 139 (136-145) mmol/L Potassium 4.2 (3.5-5.1) mmol/L Chloride 103 (98-107) mmol/L Carbon Dioxide 28 (22-29) mmol/L Anion Gap 12.2 (5-19) BUN 16 (8-23) mg/dL Creatinine 0.9 (0.5-0.9) mg/dL GFR Calculation Not Reportable Glucose 94 (65-115) mg/dL Calculated Osmolal ity 289 (285-295) mOsm/k g Calcium 8.7 (8.5-10.5) mg/dL Total Bilirubin 0.4 (0.15-1.2) mg/dL AST 15 (0-32) U/L ALT 6 (0-33) U/L Alkaline Phosphata se 76 (35-105) IU/L Troponin T Baselin e (0-10) ng/L Troponin T 120 Min three affiliated (0-10) ng/L Delta Troponin T (0-10) ABS# NT-Pro-B Natriuret Pep 3370 H (0-450) pg/mL Total Protein 6.1 L (6.6-8.7) g/dL Albumin 4.1 (3.5-5.2) g/dL Globulin 2.0 (1.3-4.6) g/dL Urine Color (Yellow) Urine Appearance (CLEAR) Urine pH (5-7) Ur Specific Gravit y (1.005-1.030) Urine Protein (Negative) Urine Glucose (UA) (Normal) Urine Ketones (Negative) Urine Blood (Negative) Urine Nitrate (Negative) Urine Bilirubin (Negative) Prot Sulfosalicyli c Acd (Negative) Urine Urobilinogen (Negative) mg/dL Ur Leukocyte Marissa ase (Negative) Urine RBC (0-2) /hpf Urine WBC (0-5) /hpf Ur Squamous Epith Cells (0-5) /hpf Amorphous Sediment /hpf Urine Bacteria (NONE) /hpf 04/03/20 04/03/20 04/03/20 Range/Units 17:55 18:41 19:55 WBC (4.0-10.0) 10^3/ uL RBC (4.1-5.3) 10^6/u L Hgb (11.5-15.3) g/dL Hct (37.0-47.0) % MCV (81-99) fL MCH (28.0-34.0) pg MCHC (30.0-36.0) g/dL RDW (12.1-15.1) % Plt Count (130-400) 10^3/c mm MPV (7.4-10.4) fL Neut % (Auto) % Lymph % (Auto) % Gibson % (Auto) % Eos % (Auto) % Baso % (Auto) % Neut # (Auto) (1.8-7.7) 10^3/u L Lymph # (Auto) (0.8-4.8) 10^3/u L Gibson # (Auto) (0.2-0.9) 10^3/u L Eos # (Auto) (0.0-0.8) 10^3/u L Baso # (Auto) (0.0-0.1) 10^3/u L Nucleated RBC % (a uto) % Nucleated RBCs # /100WBC PT (12.1-14.9) SECO NDS INR (0.8-1.2) Sodium (136-145) mmol/L Potassium (3.5-5.1) mmol/L Chloride (98-107) mmol/L Carbon Dioxide (22-29) mmol/L Anion Gap (5-19) BUN (8-23) mg/dL Creatinine (0.5-0.9) mg/dL GFR Calculation Glucose (65-115) mg/dL Calculated Osmolal ity (285-295) mOsm/k g Calcium (8.5-10.5) mg/dL Total Bilirubin (0.15-1.2) mg/dL AST (0-32) U/L ALT (0-33) U/L Alkaline Phosphata se (35-105) IU/L Troponin T Baselin e 45 H (0-10) ng/L Troponin T 120 Min three affiliated 45.52 H (0-10) ng/L Delta Troponin T 0.52 (0-10) ABS# NT-Pro-B Natriuret Pep (0-450) pg/mL Total Protein (6.6-8.7) g/dL Albumin (3.5-5.2) g/dL Globulin (1.3-4.6) g/dL Urine Color Yellow (Yellow) Urine Appearance Hazy A (CLEAR) Urine pH 8 H (5-7) Ur Specific Gravit y 1.010 (1.005-1.030) Urine Protein Neg (Negative) Urine Glucose (UA) Norm (Normal) Urine Ketones Negative (Negative) Urine Blood Neg (Negative) Urine Nitrate Negative (Negative) Urine Bilirubin Neg (Negative) Prot Sulfosalicyli c Acd Negative (Negative) Urine Urobilinogen Norm (Negative) mg/dL Ur Leukocyte Marissa ase Negative (Negative) Urine RBC 0-4 H (0-2) /hpf Urine WBC 0-4 H (0-5) /hpf Ur Squamous Epith Cells 0-4 H (0-5) /hpf Amorphous Sediment 2+ /hpf Urine Bacteria 1+ H (NONE) /hpf Imaging Data^: CT Chest: Attestation: I personally reviewed and interpreted this imaging study as follows: Radiologist's impression: [address] [address] [address] Scan Report Signed Patient: Rose Mary Jay Unit #: [id number] : 1940 Age/Sex: 80 / F ADM Date: 04/03/20 Loc: ER Room/Bed: Attending Dr: Ordering Provider/Ordering MD: Fantasma Wilson MD Date of Service: 04/03/20 Procedure(s): CT angio chest PE protcl [id number] Accession Number(s): [id number] Report Number: [id number] PROCEDURE INFORMATION: Exam: CT Angiography Chest With Contrast Exam date and time: 04/03/2020 5:15 PM Age: 80 years old Clinical indication: Shortness of breath; Prior surgery; Surgery date: <1 month; Surgery type: Valve replacement; Additional info: SOB TECHNIQUE: Imaging protocol: Computed tomographic angiography of the chest with intravenous contrast. 3D rendering (Not supervised by radiologist): MIP and/or 3D reconstructed images were created by the technologist. Radiation optimization: All CT scans at this facility use at least one of these dose optimization techniques: automated exposure control; mA and/or kV adjustment per patient size (includes targeted exams where dose is matched to clinical indication); or iterative reconstruction. Contrast material: OMNI 350; Contrast volume: 69 ml; Contrast route: INTRAVENOUS (IV); COMPARISON: CT chest wo con [id number] 02/20/2020 11:49 AM RADIATION DOSE METRICS: Total DLP (mGy-cm): 615.51 FINDINGS: Pulmonary arteries: Pulmonary arteries are well opacified. Pulmonary arteries are normal in caliber. No filling defects are demonstrated. No evidence of pulmonary embolism. Aorta: The aorta is relatively unopacified. Prosthetic aortic valve noted. Atherosclerotic aortic calcification. No aortic aneurysm. Lungs: Mild prominence of the pulmonary interstitium, suggesting mild interstitial edema. Mild atelectasis at the lung bases. No consolidative infiltrates. Pleural space: Moderate-sized right pleural effusion. Small left pleural effusion. Heart: Moderate cardiomegaly is noted. No pericardial effusion. Mediastinal space: There is a small hiatal hernia present. Lymph nodes: Unremarkable. No enlarged lymph nodes. Liver: Calcified granulomas are seen in the liver. Spleen: Calcified granulomas are noted in the spleen. Bones/joints: Advanced degeneration of the thoracic spine. No acute osseous abnormality. Soft tissues: The soft tissues appear unremarkable. CT/CT angio chest PE protcl [id number] IMPRESSION: 1. No pulmonary embolism. 2. The aorta is relatively unopacified. Prosthetic aortic valve noted. Atherosclerotic aortic calcification. No aortic aneurysm. 3. Mild prominence of the pulmonary interstitium, suggesting mild interstitial edema. Mild atelectasis at the lung bases. No consolidative infiltrates. 4. Moderate cardiomegaly is noted. 5. Moderate-sized right pleural effusion. Small left pleural effusion. EKG Data^: EKG 1: Attestation: I personally reviewed and interpreted this EKG as follows: EKG Interpretation Date: 04/03/20 EKG interpretation time: 16:29 Interpretation: afib hr [address] or t wave abnormalities qrs 134 qtc 475 Discharge Plan Discharge Patient Disposition: Home Clinical Impression: Pleural effusion Congestive heart failure Qualifiers: Heart failure type: diastolic Heart failure chronicity: acute on chronic Qualified Code(s): I50.33 - Acute on chronic diastolic (congestive) heart failure Clinical Impression: (Ruled Out): Community acquired pneumonia Condition: Stable Prescriptions: No Action clopidogrel 75 mg tablet 75 mg PO DAILY@ RF: 0 metoprolol tartrate 25 mg tablet 25 mg PO BID@ RF: 0 Eliquis 5 mg tablet 5 mg PO BID@ RF: 0 potassium chloride [Klor-Con 10] 10 mEq tablet extended release 10 meq PO TID@ RF: 0 losartan 50 mg tablet 50 mg PO DAILY@ RF: 0 gabapentin 400 mg capsule 400 mg PO TID@ RF: 0 omeprazole 40 mg capsule,delayed release(DR/EC) 40 mg PO DAILY@ RF: 0 Vitamin B-12 1 tab PO DAILY@ RF: 0 vitamin E 1 cap PO DAILY@ RF: 0 levothyroxine 150 mcg Tablet 150 mcg PO DAILY@08 RF: 0 furosemide 40 mg tablet 80 mg PO DAILY@09 RF: 0 amlodipine 10 mg tablet 10 mg PO DAILY@09 RF: 0 Discharge Orders: Discharge ED (Routine); Ordered 04/03/20 Ordered By: Bernice Kyle Referrals: Karthik Keenan MD [Physician] - 1-3 days SARIKA DIANA FNP [Primary Care Provider] - Discharge Diet: Advance as tolerated Discharge Activity: Resume usual activity Patient Instructions: Heart Failure (ED) Activity Restrictions/Additional Instructions: Please return to the ER immediately for any of the signs or symptoms listed on your discharge instruction sheets, worsening/changing of your symptoms, you are not getting better as quickly as expected, or for ANY other cause or concerns. Take the Bumex that I have prescribed you as needed for shortness of breath and increased swelling. Be certain to follow-up with Dr. Keenan as soon as possible for recheck of your symptoms. Return to the ER for chest pain, worsening shortness of breath, palpitations, or for any other cause for concern. Sign Out Sign Out Data: Patient Sign Out occurred on 04/03/20 at 18:06. Patient's care was discussed, and care was transferred from to Bernice Kyle. Coding Level of Care Code ED Sept[employer] Serv[employer] for Chg Fwd Exam Comprehensive Documented by User: Bernice Kyle 04/03/20 22:43 HPI - SOB/Dyspnea General: Chief Complaint: Shortness of Breath/Dyspnea Stated Complaint: SOB/post surgery related/sent from radiology Time Seen by Provider: 04/03/20 16:33 PFSH ED PFSH: Medical History (Updated 04/03/20 @ 20:48 by Bernice Kyle) Acute on chronic diastolic (congestive) heart failure Anemia Aortic stenosis Atrial fibrillation Benign essential hypertension with target blood pressure below 140/90 CHF (congestive heart failure) Chronic episodic atrial fibrillation COPD (chronic obstructive pulmonary disease) Dyslipidemia (high LDL; low HDL) GERD (gastroesophageal reflux disease) Hiatal hernia History of GI bleed Hyperlipidemia Hypertension Hypothyroidism Moderate to severe mitral regurgitation Severe aortic valve stenosis Surgical History (Updated 04/03/20 @ 15:14 by REYNALDO Hernandez) H/O rectal polypectomy H/O spinal fusion H/O: hysterectomy Hx of colonoscopy S/P TAVR (transcatheter aortic valve replacement) Family History Sister Cancer Denies family history of Anesthesia complication Bleeding disorder Social History Smoking and tobacco status: former smoker Alcohol intake: never Household members: family Marital status: / Course Vital Signs: Vital signs: Vital Signs Temperature 97.8 F 04/03/20 21:14 Pulse Rate 63 04/03/20 21:14 Respiratory Rate 18 04/03/20 21:14 Blood Pressure 155/84 04/03/20 20:43 Pulse Oximetry 94 04/03/20 21:14 MDM - SOB/Dyspnea MDM Narrative: Medical decision making narrative: 2044 -patient denies any chest pain. She is only short of breath when she exerts her self. CTA shows no sign of PE. Troponins have trended down. I reviewed the case in full with Dr. Keenan who is very familiar with the patient. She already anticoagulated on Eliquis. He states the patient can receive 80 of IV Lasix here in the ER and then he would like her to go home with a prescription for 2 mg of Bumex to take as needed for shortness of breath or leg swelling. He wants all of her other medicine to stay as is. I did offer admission to the patient for further evaluation but she declines. Patient believes she will be okay at home. Dr. Keenan agrees to see the patient is office for recheck tomorrow or Tuesday. Patient understands that this may take some time to pull this fluid off but she is adamant she wants to go home at this time. Lab Data: Labs: Lab Results 04/03/20 04/03/20 04/03/20 Range/Units 17:55 17:55 17:55 WBC 5.0 (4.0-10.0) 10^3/ uL RBC 3.48 L (4.1-5.3) 10^6/u L Hgb 9.1 L (11.5-15.3) g/dL Hct 30.3 L (37.0-47.0) % MCV 87.1 (81-99) fL MCH 26.1 L (28.0-34.0) pg MCHC 30.0 (30.0-36.0) g/dL RDW 14.5 (12.1-15.1) % Plt Count 258 (130-400) 10^3/c mm MPV 9.3 (7.4-10.4) fL Neut % (Auto) 77.7 % Lymph % (Auto) 15.7 % Gibson % (Auto) 4.4 % Eos % (Auto) 1.4 % Baso % (Auto) 0.6 % Neut # (Auto) 3.87 (1.8-7.7) 10^3/u L Lymph # (Auto) 0.8 (0.8-4.8) 10^3/u L Gibson # (Auto) 0.2 (0.2-0.9) 10^3/u L Eos # (Auto) 0.1 (0.0-0.8) 10^3/u L Baso # (Auto) 0.0 (0.0-0.1) 10^3/u L Nucleated RBC % (a uto) 0 % Nucleated RBCs # 0.0 /100WBC PT 13.50 (12.1-14.9) SECO NDS INR 1.00 (0.8-1.2) Sodium 139 (136-145) mmol/L Potassium 4.2 (3.5-5.1) mmol/L Chloride 103 (98-107) mmol/L Carbon Dioxide 28 (22-29) mmol/L Anion Gap 12.2 (5-19) BUN 16 (8-23) mg/dL Creatinine 0.9 (0.5-0.9) mg/dL GFR Calculation Not Reportable Glucose 94 (65-115) mg/dL Calculated Osmolal ity 289 (285-295) mOsm/k g Calcium 8.7 (8.5-10.5) mg/dL Total Bilirubin 0.4 (0.15-1.2) mg/dL AST 15 (0-32) U/L ALT 6 (0-33) U/L Alkaline Phosphata se 76 (35-105) IU/L Troponin T Baselin e (0-10) ng/L Troponin T 120 Min three affiliated (0-10) ng/L Delta Troponin T (0-10) ABS# NT-Pro-B Natriuret Pep 3370 H (0-450) pg/mL Total Protein 6.1 L (6.6-8.7) g/dL Albumin 4.1 (3.5-5.2) g/dL Globulin 2.0 (1.3-4.6) g/dL Urine Color (Yellow) Urine Appearance (CLEAR) Urine pH (5-7) Ur Specific Gravit y (1.005-1.030) Urine Protein (Negative) Urine Glucose (UA) (Normal) Urine Ketones (Negative) Urine Blood (Negative) Urine Nitrate (Negative) Urine Bilirubin (Negative) Prot Sulfosalicyli c Acd (Negative) Urine Urobilinogen (Negative) mg/dL Ur Leukocyte Marissa ase (Negative) Urine RBC (0-2) /hpf Urine WBC (0-5) /hpf Ur Squamous Epith Cells (0-5) /hpf Amorphous Sediment /hpf Urine Bacteria (NONE) /hpf 04/03/20 04/03/20 04/03/20 Range/Units 17:55 18:41 19:55 WBC (4.0-10.0) 10^3/ uL RBC (4.1-5.3) 10^6/u L Hgb (11.5-15.3) g/dL Hct (37.0-47.0) % MCV (81-99) fL MCH (28.0-34.0) pg MCHC (30.0-36.0) g/dL RDW (12.1-15.1) % Plt Count (130-400) 10^3/c mm MPV (7.4-10.4) fL Neut % (Auto) % Lymph % (Auto) % Gibson % (Auto) % Eos % (Auto) % Baso % (Auto) % Neut # (Auto) (1.8-7.7) 10^3/u L Lymph # (Auto) (0.8-4.8) 10^3/u L Gibson # (Auto) (0.2-0.9) 10^3/u L Eos # (Auto) (0.0-0.8) 10^3/u L Baso # (Auto) (0.0-0.1) 10^3/u L Nucleated RBC % (a uto) % Nucleated RBCs # /100WBC PT (12.1-14.9) SECO NDS INR (0.8-1.2) Sodium (136-145) mmol/L Potassium (3.5-5.1) mmol/L Chloride (98-107) mmol/L Carbon Dioxide (22-29) mmol/L Anion Gap (5-19) BUN (8-23) mg/dL Creatinine (0.5-0.9) mg/dL GFR Calculation Glucose (65-115) mg/dL Calculated Osmolal ity (285-295) mOsm/k g Calcium (8.5-10.5) mg/dL Total Bilirubin (0.15-1.2) mg/dL AST (0-32) U/L ALT (0-33) U/L Alkaline Phosphata se (35-105) IU/L Troponin T Baselin e 45 H (0-10) ng/L Troponin T 120 Min three affiliated 45.52 H (0-10) ng/L Delta Troponin T 0.52 (0-10) ABS# NT-Pro-B Natriuret Pep (0-450) pg/mL Total Protein (6.6-8.7) g/dL Albumin (3.5-5.2) g/dL Globulin (1.3-4.6) g/dL Urine Color Yellow (Yellow) Urine Appearance Hazy A (CLEAR) Urine pH 8 H (5-7) Ur Specific Gravit y 1.010 (1.005-1.030) Urine Protein Neg (Negative) Urine Glucose (UA) Norm (Normal) Urine Ketones Negative (Negative) Urine Blood Neg (Negative) Urine Nitrate Negative (Negative) Urine Bilirubin Neg (Negative) Prot Sulfosalicyli c Acd Negative (Negative) Urine Urobilinogen Norm (Negative) mg/dL Ur Leukocyte Marissa ase Negative (Negative) Urine RBC 0-4 H (0-2) /hpf Urine WBC 0-4 H (0-5) /hpf Ur Squamous Epith Cells 0-4 H (0-5) /hpf Amorphous Sediment 2+ /hpf Urine Bacteria 1+ H (NONE) /hpf Imaging Data^: CT Chest: Radiologist's impression: [address] [address] [address] Scan Report Signed Patient: Rose Mary Jay Unit #: [id number] : 1940 Age/Sex: 80 / F ADM Date: 04/03/20 Loc: ER Room/Bed: Attending Dr: Ordering Provider/Ordering MD: Fantasma Wilson MD Date of Service: 04/03/20 Procedure(s): CT angio chest PE protcl [id number] Accession Number(s): [id number] Report Number: [id number] PROCEDURE INFORMATION: Exam: CT Angiography Chest With Contrast Exam date and time: 04/03/2020 5:15 PM Age: 80 years old Clinical indication: Shortness of breath; Prior surgery; Surgery date: <1 month; Surgery type: Valve replacement; Additional info: SOB TECHNIQUE: Imaging protocol: Computed tomographic angiography of the chest with intravenous contrast. 3D rendering (Not supervised by radiologist): MIP and/or 3D reconstructed images were created by the technologist. Radiation optimization: All CT scans at this facility use at least one of these dose optimization techniques: automated exposure control; mA and/or kV adjustment per patient size (includes targeted exams where dose is matched to clinical indication); or iterative reconstruction. Contrast material: OMNI 350; Contrast volume: 69 ml; Contrast route: INTRAVENOUS (IV); COMPARISON: CT chest wo con [id number] 02/20/2020 11:49 AM RADIATION DOSE METRICS: Total DLP (mGy-cm): 615.51 FINDINGS: Pulmonary arteries: Pulmonary arteries are well opacified. Pulmonary arteries are normal in caliber. No filling defects are demonstrated. No evidence of pulmonary embolism. Aorta: The aorta is relatively unopacified. Prosthetic aortic valve noted. Atherosclerotic aortic calcification. No aortic aneurysm. Lungs: Mild prominence of the pulmonary interstitium, suggesting mild interstitial edema. Mild atelectasis at the lung bases. No consolidative infiltrates. Pleural space: Moderate-sized right pleural effusion. Small left pleural effusion. Heart: Moderate cardiomegaly is noted. No pericardial effusion. Mediastinal space: There is a small hiatal hernia present. Lymph nodes: Unremarkable. No enlarged lymph nodes. Liver: Calcified granulomas are seen in the liver. Spleen: Calcified granulomas are noted in the spleen. Bones/joints: Advanced degeneration of the thoracic spine. No acute osseous abnormality. Soft tissues: The soft tissues appear unremarkable. CT/CT angio chest PE protcl [id number] IMPRESSION: 1. No pulmonary embolism. 2. The aorta is relatively unopacified. Prosthetic aortic valve noted. Atherosclerotic aortic calcification. No aortic aneurysm. 3. Mild prominence of the pulmonary interstitium, suggesting mild interstitial edema. Mild atelectasis at the lung bases. No consolidative infiltrates. 4. Moderate cardiomegaly is noted. 5. Moderate-sized right pleural effusion. Small left pleural effusion. Radiation Dose CTDIVOL = (mGy): DLP = 615.51 (mGy-cm) Dictated By: Juan Antonio Newsome MD Signed By: Juan Antonio Newsome MD Signed Date/Time: 04/03/201739 DD/ 38 CXR: Attestation: I personally reviewed and interpreted this imaging study as follows: My impression: Cardiomegaly with bilateral pleural effusions. EKG Data^: EKG 2: Attestation: I personally reviewed and interpreted this EKG as follows: EKG Interpretation Date: 04/03/20 EKG interpretation time: 18:37 Interpretation: Atrial fibrillation with a ventricular rate of 66 beats a minute, interventricular conduction delay, nonspecific T wave findings. Unchanged from previous. Discharge Plan Discharge Patient Disposition: Home Clinical Impression: Pleural effusion Congestive heart failure Qualifiers: Heart failure type: diastolic Heart failure chronicity: acute on chronic Qualified Code(s): I50.33 - Acute on chronic diastolic (congestive) heart failure Clinical Impression: (Ruled Out): Community acquired pneumonia Condition: Stable Prescriptions: No Action clopidogrel 75 mg tablet 75 mg PO DAILY@09 RF: 0 metoprolol tartrate 25 mg tablet 25 mg PO BID@ RF: 0 Eliquis 5 mg tablet 5 mg PO BID@ RF: 0 potassium chloride [Klor-Con 10] 10 mEq tablet extended release 10 meq PO TID@,, RF: 0 losartan 50 mg tablet 50 mg PO DAILY@09 RF: 0 gabapentin 400 mg capsule 400 mg PO TID@,, RF: 0 omeprazole 40 mg capsule,delayed release(DR/EC) 40 mg PO DAILY@09 RF: 0 Vitamin B-12 1 tab PO DAILY@ RF: 0 vitamin E 1 cap PO DAILY@ RF: 0 levothyroxine 150 mcg Tablet 150 mcg PO DAILY@08 RF: 0 furosemide 40 mg tablet 80 mg PO DAILY@ RF: 0 amlodipine 10 mg tablet 10 mg PO DAILY@ RF: 0 Discharge Orders: Discharge ED (Routine); Ordered 04/03/20 Ordered By: Bernice Kyle Referrals: Karthik Keenan MD [Physician] - 1-3 days SARIKA DIANA FNP [Primary Care Provider] - Discharge Diet: Advance as tolerated Discharge Activity: Resume usual activity Patient Instructions: Heart Failure (ED) Activity Restrictions/Additional Instructions: Please return to the ER immediately for any of the signs or symptoms listed on your discharge instruction sheets, worsening/changing of your symptoms, you are not getting better as quickly as expected, or for ANY other cause or concerns. Take the Bumex that I have prescribed you as needed for shortness of breath and increased swelling. Be certain to follow-up with Dr. Keenan as soon as possible for recheck of your symptoms. Return to the ER for chest pain, worsening shortness of breath, palpitations, or for any other cause for concern. Sign Out Sign Out Data: Patient Sign Out occurred on 04/03/20 at 18:06. Patient's care was discussed, and care was transferred from to Bernice Kyle. Coding Level of Care Code ED [employer] Servicer for [facility] Exam Comprehensive
[2020-04-03] MEDS: iohexol 350 mg/mL 100 mL Btl IV (17:17)
[2020-04-03 18:07] LABS: Basophils % 0.6 %; Eosinophils # 0.1 10^3/uL (0.0-0.8); Eosinophils % 1.4 %; Hematocrit 30.3 % (37.0-47.0); Hemoglobin 9.1 g/dL (11.5-15.3); Lymphocytes # 0.8 10^3/uL (0.8-4.8); Lymphocytes % 15.7 %; Mean Corpuscular Hemoglobin 26.1 pg (28.0-34.0); Mean Corpuscular Volume 87.1 fL (81-99); Mean Platelet Volume 9.3 fL (7.4-10.4); Monocytes # 0.2 10^3/uL (0.2-0.9); Monocytes % 4.4 %; Neutrophils # 3.87 10^3/uL (1.8-7.7); Neutrophils % 77.7 %; Nucleated Red Blood Cells % 0 %; Platelet Count 258 10^3/cmm (130-400); Red Blood Count 3.48 10^6/uL (4.1-5.3); Red Cell Distribution Width 14.5 % (12.1-15.1)
--- NOTE | 2020-04-03 18:27 | ECG_ITS ---
[facility] Test Date: 2020-04-03 Pat Name: Rose Mary Jay Department: Room: Gender: Female Installation Tech: : 1940 Requested By: Fantasma Wilson Order Number: [id number] Delmy MD: Karthik Keenan M.D. Measurements Intervals Dania Rate: 66 P: FL: QRS: -49 QRSD: 132 T: 62 QT: 466 QTc: 489 Interpretive Statements ATRIAL FIBRILLATION INTRAVENTRICULAR CONDUCTION DELAY [130+ ms QRS DURATION] Compared to ECG 04/03/2020 16:29:55 Intraventricular conduction delay now present Left-axis deviation no longer present Left bundle-branch block no longer present Electronically Signed On 04-04-2020 19:28:49 [employer] SUPERVIS[employer] by Karthik Keenan M.D. [id number]
[2020-04-03 18:39] LABS: Alanine Aminotransferase 6 U/L (0-33); Albumin Level 4.1 g/dL (3.5-5.2); Alkaline Phosphatase 76 IU/L (35-105); Anion Gap 12.2 (5-19); Aspartate Amino Transferase 15 U/L (0-32); Blood Urea Nitrogen 16 mg/dL (8-23); Calcium 8.7 mg/dL (8.5-10.5); Carbon Dioxide 28 mmol/L (22-29); Chloride 103 mmol/L (98-107); Glucose 94 mg/dL (65-115); Osmolality Calculated 289 mOsm/kg (285-295); Potassium 4.2 mmol/L (3.5-5.1); Sodium 139 mmol/L (136-145); Total Bilirubin 0.4 mg/dL (0.15-1.2); Total Protein 6.1 g/dL (6.6-8.7)
[2020-04-03 18:40] LABS: Troponin(5th) Baseline 45 ng/L (0-10)
--- NOTE | 2020-04-03 19:03 | PC.NURSE ---
Report from charge nurse, RN. Pt waiting for lab and then possible d/c home
[2020-04-03 19:12] LABS: Sulfosalicylic Acid Urine Negative (Negative); Urine Appearance Hazy (CLEAR); Urine Color Yellow (Yellow); pH Urine 8 (5-7)
[2020-04-03 19:13] LABS: Add Urine Microscopic? YES; Bilirubin Urine Neg (Negative); Blood Urine Neg (Negative); Glucose Urine UA Norm (Normal); Ketones Urine Negative (Negative); Leukocyte Esterase Urine Negative (Negative); Nitrate Urine Negative (Negative); Protein Urine Neg (Negative); Urobilinogen Urine Norm (Negative)
[2020-04-03 19:33] LABS: NT Pro B Type Natriuretic Pept 3370 pg/mL (0-450)
[2020-04-03 19:34] LABS: Add Urine Culture? No; Amorphous Sediment Urine 2+ /hpf; Bacteria Urine 1+ /hpf; RBC Urine 0-4 /hpf (0-2); Squamous Epithelial Cell Urine 0-4 /hpf (0-5); WBC Urine 0-4 /hpf (0-5)
[2020-04-03] MEDS: FUROsemide 10 mg/mL SDV 4mL 40 MG IVP (20:10)
[2020-04-03 20:23] LABS: Troponin 5 2HR 45.52 ng/L (0-10); Troponin 5 2HR Delta 0.52 ABS# (0-10)
--- NOTE | 2020-04-03 20:44 | PC.NURSE ---
Pt waiting for her results. States I want to go, I m hungry
[2020-04-03] MEDS: FUROsemide 40 mg Tablet PO (21:00)
== END 2020-04-03 21:15 | disposition home or self-care (01) ==
PROVIDERS: Emergency Medicine; Emergency Provider Emergency Medicine; PCP Nurse Practitioner Family
DX: J90 Pleural effusion, not elsewhere classified (principal); I11.0 Hypertensive heart disease with heart failure; I50.33 Acute on chronic diastolic (congestive) heart failure; Z79.82 Long term (current) use of aspirin; Z79.02 Long term (current) use of antithrombotics/antiplatelets; Z79.01 Long term (current) use of anticoagulants; I48.91 Unspecified atrial fibrillation; J44.9 Chronic obstructive pulmonary disease, unspecified; E78.5 Hyperlipidemia, unspecified; Z87.891 Personal history of nicotine dependence
CPT/HCPCS: 12345; 36415; 71045; 71275; 80053; 81001; 83880; 84484; 85025; 85610; 93005; 96374; 96376; 99283; 99284; J1940; Q9967

== ENCOUNTER → 2020-05-22 15:43 | Outpatient (BNVA) | payer MEDICARE, MEDICAID, SELFPAY | PROVIDERS: Visit Provider Nurse Practitioner Family | DX: I50.32 Chronic diastolic (congestive) heart failure (principal); R06.02 Shortness of breath; I50.33 Acute on chronic diastolic (congestive) heart failure; R07.9 Chest pain, unspecified; E11.9 Type 2 diabetes mellitus without complications; Z87.891 Personal history of nicotine dependence | CPT/HCPCS: 80048; 83036; 83880 ==

== ENCOUNTER → 2020-10-17 12:08 | Outpatient (BNVA) | payer MEDICARE, MEDICAID, SELFPAY | PROVIDERS: Visit Provider Nurse Practitioner Family | DX: I50.32 Chronic diastolic (congestive) heart failure (principal); R06.02 Shortness of breath; I50.33 Acute on chronic diastolic (congestive) heart failure; R07.9 Chest pain, unspecified; E11.9 Type 2 diabetes mellitus without complications; I10 Essential (primary) hypertension; I48.20 Chronic atrial fibrillation, unspecified; Z71.6 Tobacco abuse counseling | CPT/HCPCS: 80048; 83880 ==